=== PATIENT | male | born 1955 ===

== ENCOUNTER 2022-10-10 08:04 | Outpatient (AMB) | payer OTHER, SELFPAY ==
[2022-10-10 08:17] VITALS: BP 120/70; PULSE 74; O2SAT 98; BMI 28.9
--- NOTE | 2022-10-10 08:17 | MHC.OFFVIS ---
Intake Vital Signs 10/10/22 08:17 Height 5 ft 6 in Weight 179 lb BMI 28.9 BP 120/70 Position Sitting Pulse 74 Pulse Source Pulse Oximeter Pulse Oximetry (%) 98 Oxygen Delivery Method Room Air Intake Visit Reasons: Pulmonary nodule Intake Note: pt is here as he states for nodule on lungs, he feels fine. non -smoker, exposed to second hand smoke. Office Executive Required: No Allergies novacaine Adverse Reaction (Uncoded 10/10/22 08:21) does not work HPI HPI Comments History of Present Illness Details The patient is here for pulmonary evaluation. The patient is a 59-year-old gentleman nonsmoker will was in the [place] was found to have pulmonary nodules. The patient states many years ago he developed shortness of breath he had called EMS he was taken to [facility] where he had a chest x-ray he was told yet ?lung cancer?. He then followed up with his primary care doctor who told him use just nodules. After that he started getting care at the [place]. The patient apparently had a CT scan of the chest back in September 2021 and again in March 2022. I will was not able to look at those films but it was noted the patient had multiple pulmonary nodules bilaterally largest 1 in the right lower lobe measuring 10 mm in size. Apparently had not changed in size when compared to that interim. He did have a recent CT scan which I personally reviewed. He did bring the CD although, I do not have the formal read as of yet. I did personally reviewed and demonstrated that he had numerous pulmonary nodules but are relatively well-circumscribed. The right lower lobe 10 mm pulmonary nodule appears to be more concerning as it is spiculated and irregular in size in features. Therefore this nodule becomes more concerning because of his appearance. Explained to the patient that if there is any evidence of any change in this nodule that issue be intervened that. We did talk about a PET scan versus a surgical resection. But, we will wait for the final read of the latest CT chest and he will provide me with the ols CT chest scan(s). [facility] Medical History (Updated 10/10/22 @ 09:02 by Jorje Walsh MD) Pulmonary nodule Pulmonary nodules Social History (Updated 10/10/22 @ 08:21 by TRUNG Montiel) Patient Tobacco Use Status: Never used Tobacco Review of Systems Const Denies fatigue and Denies fever(s) Eyes Denies blurry vision ENT Denies nasal congestion Card Denies chest pain Resp Reports cough and Denies wheezing GI Reports no additional complaints Musc Reports no additional complaints Skin/Breast Denies rash Neuro Reports no additional complaints Endo Denies fatigue Jason/Lymph Denies lymphadenopathy Aller/Immun Denies wheezing Physical Exam Vital Signs: Last Vital Signs Pulse 74 10/10/22 08:17 BP 120/70 10/10/22 08:17 Pulse Ox 98 10/10/22 08:17 Oxygen Delivery Method Room Air 10/10/22 08:17 BMI result Body Mass Index 28.9 Const General: comfortable HEENT Head: Yes atraumatic Neck Neck: Yes supple Chest Chest palpation & inspection: normal inspection of the chest Resp Effort & Inspection: normal respiratory effort Auscultation: rales on the left at the base and diminished lung sounds Cardio Rate: regular rate Rhythm: regular rhythm Heart sounds: S1 normal heart sound present and S2 normal heart sound present GI Palpation (GI): Soft to palpation Skin General skin exam: no rashes or lesions noted Extrem General: Yes no clubbing, cyanosis or edema Results Reviewed Results Reviewed: 10 mm spiculated nodule in the RLL Assessment & Plan Assessment & Plan (1) Pulmonary nodule: Comment: spiculated 10 cm RLL nodule Code(s): R91.1 - Solitary pulmonary nodule (2) Pulmonary nodules: Code(s): R91.8 - Other nonspecific abnormal finding of lung field Plan Will need to review the CT chest 09/2022 report. The RLL appears to be spiculated and concerning in appearence. Need to know how it compares to previous. If enlanged or changed should consider resection or PET. Once available, I will call the patient REC: Awaiting CT chest report awaiting old CT chest CD PFTs F/U 2-3 months Coding Level of Care Code New Pt Level 4 (32990) Diagnoses Pulmonary nodule R91.1 Pulmonary nodules R91.8 Time Spent (min) 40
== END 2022-10-10 08:49 | disposition home or self-care (01) ==
PROVIDERS: PCP Internal Medicine; Visit Provider Hospitalist
DX: R91.1 Solitary pulmonary nodule (principal); R91.8 Other nonspecific abnormal finding of lung field
CPT/HCPCS: 99204

== ENCOUNTER → 2022-10-10 08:04 | Outpatient (BNVA) | payer OTHER, SELFPAY | PROVIDERS: Visit Provider Hospitalist | DX: R91.1 Solitary pulmonary nodule (principal) | CPT/HCPCS: 99202 ==

== ENCOUNTER 2022-10-13 07:02 | Outpatient (REF) | payer OTHER, SELFPAY ==
--- NOTE | 2022-10-13 08:06 | PFT_ITS ---
FLOWS: 1. FEV1 93% of predicted at 2.64 L. 2. FVC 81% of predicted at 3.10 L. 3. FEV1 to FVC ratio of 0.85. 4. No bronchodilator response except in small to medium airways. LUNG VOLUMES: 1. Total lung capacity 83% of predicted at 5.16 L. 2. Residual volume 79% of predicted at 1.75 L. 3. Slow vital capacity 85% of predicted at 3.41 L. 4. Expiratory reserve volume 18% of predicted at 0.19 L. 5. Diffusion capacity is mildly decreased, diffusion capacity corrects to normal after adjustment for alveolar ventilation. IMPRESSION: No obstructive or restrictive ventilatory defect. No bronchodilator response except in small to medium airways. Jose G De Leon MD AP/MODL / [id number]
== END 2022-10-13 07:03 | disposition home or self-care (01) ==
LOC: HO.RESP 07:02
PROVIDERS: Visit Provider Hospitalist
DX: R91.1 Solitary pulmonary nodule (principal)
CPT/HCPCS: 94010; 94727; 94729

== ENCOUNTER → 2022-10-13 08:06 | Outpatient (BNV) | payer OTHER, SELFPAY | PROVIDERS: Visit Provider Internal Medicine Pulmonary Disease | DX: R91.8 Other nonspecific abnormal finding of lung field (principal); R06.09 Other forms of dyspnea | CPT/HCPCS: 94060; 94727; 94729 ==

== ENCOUNTER 2022-12-21 07:49 | Outpatient (AMB) | payer OTHER, SELFPAY ==
--- NOTE | 2022-12-21 08:24 | MHC.OFFVIS ---
Intake Vital Signs 12/21/22 08:25 Height 5 ft 6 in Weight 180 lb 4 oz BMI 29.1 Pulse 63 Pulse Source Pulse Oximeter Pulse Oximetry (%) 98 Oxygen Delivery Method Room Air Intake Visit Reasons: Pulmonary nodule Inventory Taker Required: No Allergies novacaine Adverse Reaction (Uncoded 12/21/22 08:26) does not work HPI HPI Comments History of Present Illness Details The patient is a 59-year-old gentleman nonsmoker will was in the [place] was found to have pulmonary nodules. The patient states many years ago he developed shortness of breath he had called EMS he was taken to [facility] where he had a chest x-ray he was told yet ?lung cancer?. He then followed up with his primary care doctor who told him use just nodules. After that he started getting care at the [place]. The patient apparently had a CT scan of the chest back in September 2021 and again in March 2022. I will was not able to look at those films but it was noted the patient had multiple pulmonary nodules bilaterally largest 1 in the right lower lobe measuring 10 mm in size. Apparently had not changed in size when compared to that interim. He did have a recent CT scan which I personally reviewed. He did bring the CD although, I do not have the formal read as of yet. I did personally reviewed and demonstrated that he had numerous pulmonary nodules but are relatively well-circumscribed. The right lower lobe 10 mm pulmonary nodule appears to be more concerning as it is spiculated and irregular in size in features. Therefore this nodule becomes more concerning because of his appearance. Explained to the patient that if there is any evidence of any change in this nodule that issue be intervened that. We did talk about a PET scan versus a surgical resection. But, we will wait for the final read of the latest CT chest and he will provide me with the old CT chest scan(s). 12/21/2022 the patient is here for a pulmonary follow-up visit. The patient overall has been doing fairly well though nervous about his all pulmonary issue. Denies any significant cough or shortness of breath. He denies any night sweats or weight loss. He currently is not using any inhalers. We did review his recent PET scan that he had at [facility]. The patient does have multiple pulmonary nodules but 1 nodule in the right lower lobe were it measures about a cm and appears to be spiculated. That nodule on the PET scan did not light up was not PET avid. Explained to the patient that this is reassuring although it is not a definitive results. The patient understands the still a chance that this could be a smoldering slow-moving cancer were may not light up on the PET scan as much. The patient also has other pulmonary nodules that are too small for the accuracy of PET. Therefore will have to continue following does nodules. Under respiratory exam the patient does have a prolonged expiratory phase and some coarse breath sounds with some rhonchi. I did offer him a short-acting beta agonist with the patient at this point would like to hold off on any inhalers. He will monitor his symptoms. If his symptoms worsen he can always call and I can send him a prescription. Otherwise will follow-up in 6 months after he is repeat CT scan of the chest. [facility] Medical History (Updated 12/21/22 @ 21:03 by Jorje Walsh MD) Pulmonary nodules Pulmonary nodule Social History (Updated 10/10/22 @ 08:21 by TRUNG Montiel) Patient Tobacco Use Status: Never used Tobacco Review of Systems Const Denies fatigue and Denies fever(s) Eyes Denies blurry vision ENT Denies nasal congestion Card Denies chest pain Resp Reports cough and Denies wheezing GI Reports no additional complaints Musc Reports no additional complaints Skin/Breast Denies rash Neuro Reports no additional complaints Endo Denies fatigue Jason/Lymph Denies lymphadenopathy Aller/Immun Denies wheezing Physical Exam Vital Signs: Last Vital Signs Pulse 63 12/21/22 08:25 Pulse Ox 98 12/21/22 08:25 Oxygen Delivery Method Room Air 12/21/22 08:25 BMI result Body Mass Index 29.1 Const General: comfortable HEENT Head: Yes atraumatic Neck Neck: Yes supple Chest Chest palpation & inspection: normal inspection of the chest Resp Effort & Inspection: normal respiratory effort and prolonged expiratory phase Auscultation: no rales, rhonchi and diminished lung sounds Cardio Rate: regular rate Rhythm: regular rhythm Heart sounds: S1 normal heart sound present and S2 normal heart sound present GI Palpation (GI): Soft to palpation Skin General skin exam: no rashes or lesions noted Extrem General: Yes no clubbing, cyanosis or edema Assessment & Plan Assessment & Plan (1) Pulmonary nodule: Comment: spiculated 10 cm RLL nodule Code(s): R91.1 - Solitary pulmonary nodule (2) Pulmonary nodules: Code(s): R91.8 - Other nonspecific abnormal finding of lung field (3) Abnormal bone marrow examination: Code(s): R89.8 - Other abnormal findings in specimens from other organs, systems and tissues Plan consider PADMINI CT chest in 6 months Abnormal bonemarrow tracer on the PET. Unclear significance. Recommend he f/u with his PCP F/U 6 months Orders: Orders CT chest wo IV con 6 Months R91.8 - Other nonspecific abnormal finding of lung field Complete Blood Count Auto Diff Today R91.8 - Other nonspecific abnormal finding of lung field Erythrocyte Sedimentation Rate Today R91.8 - Other nonspecific abnormal finding of lung field Liver Panel Today R91.8 - Other nonspecific abnormal finding of lung field Coding Level of Care Code Est Pt Level 4 (52779) Diagnoses Pulmonary nodule R91.1 Pulmonary nodules R91.8 Abnormal bone marrow examination R89.8 Time Spent (min) 17
[2022-12-21 08:25] VITALS: PULSE 63; O2SAT 98; BMI 29.1
== END 2022-12-21 08:48 | disposition home or self-care (01) ==
PROVIDERS: PCP Internal Medicine; Visit Provider Hospitalist
DX: R91.1 Solitary pulmonary nodule (principal); R91.8 Other nonspecific abnormal finding of lung field; R89.8 Other abnormal findings in specimens from other organs, systems and tissues
CPT/HCPCS: 99214

== ENCOUNTER 2022-12-21 07:49 | Outpatient (REF) | payer OTHER, SELFPAY ==
[2022-12-21 09:28] LABS: MANUAL DIFF FLAG NO
[2022-12-21 10:08] LABS: Basophils Absolute Auto 0.1 X10*3/uL (0.0-0.2); Basophils Percent Auto 1.5 % (0-2); Eosinophils Absolute Auto 0.6 X10*3/uL (0.0-0.4); Eosinophils Percent Auto 10.1 % (0-4); Hematocrit 43.5 % (42.0-52.0); Hemoglobin 14.1 g/dl (14.0-18.0); Imm Gran Abs Auto 0.03 X10*3/uL (0.00-0.03); Imm Gran Pct Auto 0.6 % (0.0-0.4); Lymphocytes Percent Auto 36.2 % (20-40); Mean Corpuscular HGB Conc 32.4 g/dl (31.0-36.0); Mean Corpuscular Hemoglobin 29.6 pg (27.0-33.0); Mean Corpuscular Volume 91.4 fL (80.0-98.0); Mean Platelet Volume 11.5 fL (9.4-12.4); Monocytes Absolute Auto 0.4 X10*3/uL (0.1-1.2); Monocytes Percent Auto 7.6 % (2-11); Neutrophils Absolute Auto 2.4 x10*3/uL (2.0-8.3); Platelet Count 203 X10*3/uL (160-400); Red Blood Count 4.76 X10*6/uL (4.60-5.80); Red Cell Distribution Width 13.5 % (11.0-16.0); White Blood Count 5.4 X10*3/uL (4.8-10.8)
[2022-12-21 10:34] LABS: Alanine Aminotransferase 15 U/L (0-40); Alkaline Phosphatase 54 U/L (39-117); Aspartate Amino Transferase 14 U/L (5-37); Bilirubin Direct 0.2 mg/dL (0.0-0.5); Bilirubin Total 0.7 mg/dL (0.0-1.0); Total Protein 6.9 g/dL (6.5-8.0)
[2022-12-21 10:57] LABS: Erythrocyte Sedimentation Rate 5 MM/HR (0-15)
== END 2022-12-21 07:50 | disposition home or self-care (01) ==
LOC: HO.LAB 07:49
PROVIDERS: PCP Internal Medicine; Visit Provider Hospitalist
DX: R91.8 Other nonspecific abnormal finding of lung field (principal); R89.8 Other abnormal findings in specimens from other organs, systems and tissues
CPT/HCPCS: 36415; 80076; 85025; 85652; 99212

== ENCOUNTER 2023-04-18 08:21 | Outpatient (AMB) | payer OTHER, SELFPAY ==
--- NOTE | 2023-04-18 09:33 | A.OFFVIS_ITS ---
Intake Vital Signs 04/18/23 09:36 Height 5 ft 6 in Weight 186 lb BMI 30.0 BP 168/88 H Blood Pressure Location Rt radial Position Sitting Pulse 71 Intake Visit Reasons: solitary pulmonary nodule Intake Note: Patient referred by pcp Dr. Ramos for pulmonary nodule. Recent chest CT on 04-06-23. Las visit with Dr. Walsh (plastic extrusion operator) on 12-21-22. Patient c/o: denies difficulty breathing, shortness of breath. Slubber Frame Changer Required: No Accompanied by: Self / Same As Patient Allergies novacaine Adverse Reaction (Uncoded 04/18/23 09:34) does not work HPI HPI Comments History of Present Illness Details Patient presents with a several month history of a right lower lobe lung lesion. This has increased in size, and has become spiculated and suspicious for a neoplastic process. [facility] as well as a PET scan. These were reviewed. The meantime, patient has no respiratory issues or complaints. He denies any chronic cough, hemoptysis, chest pain, wheezing. He has normal energy, weight is stable, and appetite is good. Patient himself has never been a smoker but he has had a longstanding history of exposure to secondhand smoke through his father and inlaws. Chart was reviewed and patient evaluated. Approximate 25 years ago patient had bilateral orchiectomy for testicular cancer. [facility] Medical History Pulmonary nodules Pulmonary nodule Surgical History (Updated 04/18/23 @ 10:31 by Aron Martin MD) Pulmonary nodule Social History (Updated 04/18/23 @ 09:35 by TRUNG Silvestre) Alcohol intake: current Alcohol intake frequency: holidays/special occasions only Alcohol type: beer Patient Tobacco Use Status: Never used Tobacco Physical Exam Vital Signs: Last Vital Signs Pulse 71 04/18/23 09:36 BP 168/88 H 04/18/23 09:36 BMI result Body Mass Index 30.0 Neck Other: No cervical periclavicular axillary adenopathy bilaterally. Chest Other: Chest breath sounds bilaterally, HS 1 in 2 GI Other: Abdomen soft, modestly corpulent, benign Assessment & Plan Assessment & Plan (1) Pulmonary nodule: Comment: spiculated 10 cm RLL nodule Code(s): R91.1 - Solitary pulmonary nodule Plan Patient had pulmonary function tests approximately 6 months ago at [place].. These will be reviewed. CT scan disc was presented today by the patient and this was also reviewed. PET scan results from the [place] were also evaluated. Risks, benefits, and alternatives of VATS right lower lobe wedge resection, with frozen section, with possible right lower lobectomy, possible thoracotomy reviewed with the patient and included but not limited to bleeding, infection, recurrence of cancer, numbness, pain, scarring, numbness and the patient wishes to proceed. All questions answered. Once the PFTs have been reviewed, and if adequate, arrangements will be made for the above-mentioned procedure. All questions answered. Coding Level of Care Code New Pt Level 5 (33455) Diagnoses Pulmonary nodule R91.1
[2023-04-18 09:36] VITALS: BP 168/88; PULSE 71
== END 2023-04-18 09:55 | disposition home or self-care (01) ==
PROVIDERS: PCP Internal Medicine; Visit Provider Surgery
DX: R91.1 Solitary pulmonary nodule (principal)
CPT/HCPCS: 99204

== ENCOUNTER → 2023-04-18 08:21 | Outpatient (BNVA) | payer OTHER, SELFPAY | PROVIDERS: PCP Internal Medicine; Visit Provider Surgery | DX: R91.1 Solitary pulmonary nodule (principal) | CPT/HCPCS: 99202 ==

== ENCOUNTER → 2023-04-28 13:49 | Outpatient (BNV) | payer OTHER, SELFPAY | PROVIDERS: Admitting Provider Surgery; PCP Internal Medicine; Visit Provider Internal Medicine Cardiovascular Disease | DX: Z01.818 Encounter for other preprocedural examination (principal) | CPT/HCPCS: 93010 ==

== ENCOUNTER 2023-05-04 04:56 | Inpatient (IN) | payer OTHER, SELFPAY ==
--- NOTE | 2023-04-28 | ECG_ITS ---
Test Reason : PRE OP Blood Pressure : / mmHG Vent. Rate : 062 BPM Atrial Rate : 062 BPM P-R Int : 168 ms QRS Dur : 138 ms QT Int : 440 ms P-R-T Axes : 053 082 052 degrees QTc Int : 446 ms Normal sinus rhythm Right bundle branch block Abnormal ECG No previous ECGs available Referred By: Belen Campuzano Electronically Signed By:ABIGAIL ROWLAND MD
[2023-04-28 12:49] VITALS: BP 133/88; PULSE 72; RESP 20; O2SAT 97; BMI 29.9
[2023-04-28 14:04] LABS: Hematocrit 41.6 % (42.0-52.0); Hemoglobin 13.9 g/dl (14.0-18.0); Mean Corpuscular HGB Conc 33.4 g/dl (31.0-36.0); Mean Corpuscular Hemoglobin 29.5 pg (27.0-33.0); Mean Corpuscular Volume 88.3 fL (80.0-98.0); Platelet Count 229 X10*3/uL (160-400); Red Blood Count 4.71 X10*6/uL (4.60-5.80); Red Cell Distribution Width 13.2 % (11.0-16.0)
[2023-04-28 15:03] LABS: Anion Gap 13 (12-20); Blood Urea Nitrogen 22 mg/dL (9-16); Calcium 9.4 mg/dL (8.4-10.2); Carbon Dioxide 25 mmol/L (22-29); Chloride 104 mmol/L (96-108); Creatinine Clr Calc Pharmacy 85.3; Estimated Glomerular Filt Rate > 60; Glucose Random 96 mg/dL (60-115); Potassium 4.4 mmol/L (3.3-5.1); Sodium 138 mmol/L (135-145)
[2023-04-28 15:14] LABS: Estimated Average Glucose 114 mg/dL; Hemoglobin A1c % 5.6 % (<6.0)
--- NOTE | 2023-05-03 11:14 | MHC.SHP ---
Pre-Procedural Eval Section A - 24 Hr Update-Section A only Date of Service: 05/03/23 The patient is an INPATIENT: Yes Changes since office visit: No Cold of Flu in the past 2 weeks, No New Medical Problems, No Changes in Medication and No Patient answered all questions The patient has been examined within 24 hours of the surgical procedure. The History & Physical has been completed within 30 days and I have reviewed it.: Yes Section B - Complete if H&P > 30 days Chief Complaint: Solitary pulmonary nodule Allergies: Allergies Allergy/AdvReac Type Severity Reaction Status Date / Time beet Allergy Intermediate Vomiting Verified 04/28/23 12:42 procaine [From Novocain] AdvReac Intermediate has no Verified 04/27/23 09:53 effect Plan I have reviewed the history and physical and performed a pertinent physical examination on my patient. No changes have occurred unless specified. Time Spent With Patient Time: Total time managing care of this patient today ____ minutes.
[2023-05-04] VITALS (12 sets, daily range): BP systolic 100–167; BP diastolic 61–84; PULSE 63–83; RESP 10–20; TEMP 36.1–36.9; O2SAT 95–100; BMI 30.3
--- NOTE | ~2023-05-04 | XR_ITS ---
EXAMINATION: XR CHEST CLINICAL INFORMATION: Status post right lower lobe lobectomy COMPARISON: None available. TECHNIQUE: Frontal view of the chest was obtained. FINDINGS: Apically oriented right chest tube. No appreciable pneumothorax. Elevation the right hemidiaphragm. Surgical material left medial lung base. Bibasilar atelectasis. Interstitial prominence. Trachea is midline. Cardiac mediastinal silhouette is borderline enlarged. Aorta demonstrates mild tortuosity. No large pleural effusion. Osseous structures are intact. Right lateral chest wall subcutaneous emphysema. XR/XR chest 1V IMPRESSION: 1. Apically oriented right chest tube. No appreciable pneumothorax. 2. Elevation the right hemidiaphragm. 3. Surgical material left medial lung base. 4. Bibasilar atelectasis. 5. Interstitial prominence. 6. Right lateral chest wall subcutaneous emphysema.
--- NOTE | ~2023-05-04 | XR_ITS ---
EXAMINATION: XR CHEST CLINICAL INFORMATION: 68-year-old male with status post right lower lobectomy COMPARISON: 05/04/2023 TECHNIQUE: AP view of the chest was obtained. FINDINGS: There is low lung volume bilaterally with chest tube seen over the right apex. Right lung is partially expanded. No evidence of infiltrates or nodules. There are expected postsurgical changes with soft tissue emphysema seen on the right. . XR/XR chest 1V IMPRESSION: Expected postsurgical changes without evidence of pneumothorax but soft tissue emphysema on the right
--- NOTE | ~2023-05-04 | XR_ITS ---
EXAMINATION: XR CHEST CLINICAL INFORMATION: Right chest tube removed. COMPARISON: Chest 05/06/2023, 05/05/2023 and 05/04/2023. TECHNIQUE: Frontal view of the chest was obtained. FINDINGS: Right chest tube has been removed a tiny residual right apical pneumothorax is visualized. There is a hypoexpanded lungs with right basilar and CP angle haziness likely thickening all residual effusion. The left lung is clear. The heart size and pulmonary vascularity is normal. There is a right anterolateral chest wall subcutaneous emphysema, stable. XR/XR chest 1V IMPRESSION: 1. Right chest tube has been removed. There is a tiny residual right apical pneumothorax. 2. Hypoexpanded lungs with right basilar and CP angle haziness likely thickening or effusion. 3. There is right anterolateral chest wall subcutaneous emphysema.
--- NOTE | ~2023-05-04 | XR_ITS ---
EXAMINATION: XR CHEST CLINICAL INFORMATION: Status post right lower lobectomy. COMPARISON: 05/05/2023 TECHNIQUE: Frontal view of the chest was obtained. FINDINGS: The tip of the right thoracostomy tube projects over the right apex. There is equivocal finding of a trace apical pneumothorax. Also, question presence of small amount of pleural gas at the right lateral base after the recent lower lobectomy. Again noted is soft tissue emphysema along the right lateral chest wall. Lungs are hypoinflated. Hazy and/or linear streaky opacities of atelectasis at the bases remain similar in appearance compared to 05/05/2023. Some of the haziness at the right base appears to be from a small pleural effusion. Multiple EKG wires overlie the chest. Cardiac silhouette is normal in size. Pulmonary artery pattern is grossly normal. No acute osseous abnormality. XR/XR chest 1V IMPRESSION: * Hypoinflated lungs. The bibasilar atelectasis is similar in appearance compared to 05/05/2023. * Small right pleural effusion. * Probable trace right pneumothorax with thoracostomy tube in place, status post lower lobectomy.
[2023-05-04] MEDS: Lactated Ringers 1,000 ML 100 ML IVCONT (06:55)
--- NOTE | 2023-05-04 07:20 | HO.ANESPROP2 ---
Documented by User: Belen Campuzano NP 05/01/23 13:25 HPI - Anesthesia Eval Consult details Narrative: 68yo M for Right Thoracoscopy w/Video Assist Lower Lobe,poss lobectomy, Thoracotomy and Bronchoscopy, 05/04/22 No recent illness No CP/SOB with exercise Wrist fx 03/2023 with splint PMFSH Active Problems Active Problems: All Active Problems (Updated 04/28/23 @ 12:42 by Rosario Tuttle RN) Abnormal bone marrow examination (Acute) Pulmonary nodules (Acute) Pulmonary nodule (Acute) Past Medical History Medical History Right wrist fracture Pulmonary nodule Testicular cancer Elevated cholesterol Pre-diabetes RBBB (right bundle branch block) Dyslexia and alexia DJD (degenerative joint disease) Family History Family history of problems with anesthesia: No Surgical History Surgical History Hx of left inguinal hernia repair H/O colonoscopy Hx of bilateral orchiectomies Hx of nasal septoplasty History of Problems with Anesthesia: No Social History Social History (Updated 04/18/23 @ 09:35 by TRUNG Silvestre) Are you a primary regular senior care provider to a significant other at home: No Do you presently have visiting nurse or other home services: No Alcohol intake: current Alcohol intake frequency: holidays/special occasions only Alcohol type: beer Patient Tobacco Use Status: Never used Tobacco Use of substances other than those prescribed or required for medical reasons: No Have you been hit, kicked, punched, or otherwise hurt by someone within the past year? If so, by whom?: No Are you DNR?: No Advance Directives: No Advance Directives Information Provided: Yes (brochure given) Advance Directives on File: No Recently lost weight without trying: No Eating poorly because of decreased appetite: No Nutrition Risks: No Nutritional Risk Poor oral hygiene: No (upper full denture-does not use Fixodent/broken teeth-lower (no denture)) Meds Allergies Allergy/AdvReac Type Severity Reaction Status Date / Time beet Allergy Intermediate Vomiting Verified 05/04/23 06:10 procaine [From Novocain] AdvReac Intermediate has no Verified 05/04/23 06:10 effect Home Medications Medication Instructions Recorded Confirmed Last Taken Type fluticasone propionate 50 1 spray intranasal DAILY PRN sinus 04/28/23 05/04/23 Unknown History mcg/actuation nasal congestion spray,suspension Exam Pertinent Lab Results Pertinent Lab Results: Lab Results 04/28/23 04/28/23 Range/Units 13:46 13:52 WBC 7.0 (4.8-10.8) X10*3/uL RBC 4.71 (4.60-5.80) X10*6/uL Hgb 13.9 L (14.0-18.0) g/dl Hct 41.6 L (42.0-52.0) % MCV 88.3 (80.0-98.0) fL MCH 29.5 (27.0-33.0) pg MCHC 33.4 (31.0-36.0) g/dl RDW 13.2 (11.0-16.0) % Plt Count 229 (160-400) X10*3/uL MPV 11.0 (9.4-12.4) fL Absolute Nucleated RBC 0.000 (0.0-0.012) X10*3/uL Nucleated RBC % (auto) 0.0 (0.0-0.2) /100WBC Sodium 138 (135-145) mmol/L Potassium 4.4 (3.3-5.1) mmol/L Chloride 104 (96-108) mmol/L Carbon Dioxide 25 (22-29) mmol/L Anion Gap 13 (12-20) BUN 22 H (9-16) mg/dL Creatinine 0.83 (0.5-1.4) mg/dL Estim Creat Clear Calc 85.3 Estimated GFR > 60 Random Glucose 96 (60-115) mg/dL Estimat Average Glucose 114 mg/dL Hemoglobin A1c % 5.6 (<6.0) % Calcium 9.4 (8.4-10.2) mg/dL Blood Type A Positive Antibody Screen NEGATIVE Narrative Narrative: EKG 04/2023 Vent. Rate : 062 BPM Atrial Rate : 062 BPM P-R Int : 168 ms QRS Dur : 138 ms QT Int : 440 ms P-R-T Axes : 053 082 052 degrees QTc Int : 446 ms Normal sinus rhythm Right bundle branch block Abnormal ECG No previous ECGs available (Known hx RBBB) PFT 2022 FLOWS: 1. FEV1 93% of predicted at 2.64 L. 2. FVC 81% of predicted at 3.10 L. 3. FEV1 to FVC ratio of 0.85. 4. No bronchodilator response except in small to medium airways. LUNG VOLUMES: 1. Total lung capacity 83% of predicted at 5.16 L. 2. Residual volume 79% of predicted at 1.75 L. 3. Slow vital capacity 85% of predicted at 3.41 L. 4. Expiratory reserve volume 18% of predicted at 0.19 L. 5. Diffusion capacity is mildly decreased, diffusion capacity corrects to normal after adjustment for alveolar ventilation. IMPRESSION: No obstructive or restrictive ventilatory defect. No bronchodilator response except in small to medium airways. Airway Mallampati Class: I TM Dist: >3cm Neck ROM: Full Denture: Upper Loose/Missing/Broken Teeth: Yes (broken throughout lower) Heart: RRR Lungs: CTAB, prolonged expiratory Assessment and Plan Assessment Anesthesia Assessment: Anesthesia Plan Discussed and PAT Visit Final Anesthetic Review Family History of Problems with Anesthesia: No History of Problems with Anesthesia: No Documented by User: Jacque Garcia DO 05/04/23 07:24 HPI - Anesthesia Eval Consult details Narrative: 68yo M for Right Thoracoscopy w/Video Assist Lower Lobe,poss lobectomy, Thoracotomy and Bronchoscopy, 05/04/23 No recent illness No CP/SOB with exercise Wrist fx 03/2023 with splint PMFSH Past Medical History Medical History Right wrist fracture Pulmonary nodule Testicular cancer Elevated cholesterol Pre-diabetes RBBB (right bundle branch block) Dyslexia and alexia DJD (degenerative joint disease) Family History Family history of problems with anesthesia: No Surgical History Surgical History Hx of left inguinal hernia repair H/O colonoscopy Hx of bilateral orchiectomies Hx of nasal septoplasty History of Problems with Anesthesia: No Social History Social History (Updated 04/18/23 @ 09:35 by TRUNG Silvestre) Are you a primary regular senior care provider to a significant other at home: No Do you presently have visiting nurse or other home services: No Alcohol intake: current Alcohol intake frequency: holidays/special occasions only Alcohol type: beer Patient Tobacco Use Status: Never used Tobacco Use of substances other than those prescribed or required for medical reasons: No Have you been hit, kicked, punched, or otherwise hurt by someone within the past year? If so, by whom?: No Are you DNR?: No Advance Directives: No Advance Directives Information Provided: Yes (brochure given) Advance Directives on File: No Recently lost weight without trying: No Eating poorly because of decreased appetite: No Nutrition Risks: No Nutritional Risk Poor oral hygiene: No (upper full denture-does not use Fixodent/broken teeth-lower (no denture)) Meds Allergies Allergy/AdvReac Type Severity Reaction Status Date / Time beet Allergy Intermediate Vomiting Verified 05/04/23 06:10 procaine [From Novocain] AdvReac Intermediate has no Verified 05/04/23 06:10 effect Home Medications Medication Instructions Recorded Confirmed Last Taken Type fluticasone propionate 50 1 spray intranasal DAILY PRN sinus 04/28/23 05/04/23 Unknown History mcg/actuation nasal congestion spray,suspension Exam Exam Date and Time: May 04, 2023 0718 Height,Weight and Vital Signs: Height 5 ft 6 in Weight 85.275 kg Vital Signs Pulse Rate 72 04/28/23 12:49 Respiratory Rate 20 04/28/23 12:49 Blood Pressure 133/88 04/28/23 12:49 Pulse Oximetry 97 04/28/23 12:49 Oxygen Delivery Method Room Air 04/28/23 12:49 Temperature 97.2 F 05/04/23 06:33 Pulse Rate 66 05/04/23 06:33 Respiratory Rate 16 05/04/23 06:33 Blood Pressure 167/84 H 05/04/23 06:33 Pulse Oximetry 98 05/04/23 06:33 Oxygen Delivery Method Room Air 05/04/23 06:33 Airway Mallampati Class: I TM Dist: >3cm Neck ROM: Full Denture: Upper Loose/Missing/Broken Teeth: Yes (multiple broken teeth) Heart: S1S2 Lungs: CTAB Assessment and Plan Assessment Anesthesia Assessment: Anesthesia Plan Discussed and Chart Reviewed Final Anesthetic Review Family History of Problems with Anesthesia: No History of Problems with Anesthesia: No NPO: Yes ASA Class: II Final Preanesthetic Review: No Changes in Pt Med Stat, Meds/Allgs Chart Reviewed, Consent Obtained/Reviewed and Anes Risks/Benef Reviewed Patient Risk: Low Procedure Risk: High Anesthetic Plan Anesthetic Plan: GA and Agree w/ Assess. and Plan Disposition: Standard PACU
--- NOTE | 2023-05-04 11:39 | W.PM.OPN ---
Operative Note Operative Note Date of Service: 05/04/23 Narrative: Preoperative diagnosis: [] Right lower lobe lung mass Postop diagnosis: [] Right lower lobe lung adenocarcinoma Procedure [] bronchoscopy, vats right lower lobe wedge resection followed by VATS right lower lobectomy, mediastinal lymph node sampling, intercostal nerve block Surgeon: [] [employer] Dispatcher: [] Rafi Gannon Type of Anesthesia: [] Double-lumen general Indication for surgery: Right lower lobe wedge resection of peripherally situated lesion on frozen section was consistent with adenocarcinoma. No other gross intrathoracic pathology demonstrated. Bronchoscopy was used to assist anesthesia in the placement-lumen tube as well as for airway evaluation. No gross endoluminal pathology demonstrated. No other gross intrathoracic pathology demonstrated. Mediastinal lymph node stations 10 R, 7, and 11 sampled with permanent specimen. Findings: [] Patient brought to the operating room, placed on operative table in supine position, after an adequate level of double-lumen general anesthesia was induced, patient underwent bronchoscopy with findings as noted above. Patient was then placed in left lateral decubitus position with the right chest was prepped and draped in usual sterile fashion. Using anterior and posterior ports at approximately 7th intercostal space at anterior posterior axillary lines, and a 4 cm axillary access incision with wound protector placed, intrathoracic findings were as noted above. Right lower lobe lung lesion was identified and sequentially wedged out using GEN staplers. This was sent to pathology with findings as noted above. Patient then underwent right lower lobectomy. Inferior pulmonary ligament was taken down using Bovie and inferior pulmonary vein was circumferentially dissected out, skeletonized, and trisected using endoscopic vascular stapler. [place]um was approached where the pulmonary artery to the lower lobe was identified, skeletonized, and taken down with vascular stapler to the lower lobe and superior segmental branches. Fissures were completed using GEN staplers. Next the bronchus was circumferentially dissected out, skeletonized, and a heavy wire stapler placed across this. Remaining upper lobe and lower lobe reinflated with no compromise to these. Staplers uneventfully fired. Specimen was placed in an Endo-Catch bag, a retrieved through the access incision. Lymph node stations noted above were sampled as well. Chest cavity was filled with saline and remaining lung re-expanded with no leak from the bronchial stump. Through the anterior access port, 24 [place] chest tube was advanced and secured to the skin using 0 silk suture. All ports removed under direct laparoscopic view. Wounds were closed in the following manner; ports were closed using deep followed by dermal interrupted 2-0 and 3-0 Vicryl sutures respectively. Access incision has muscle reapproximated using running 0 Vicryl suture. Running subcu cutaneous 2-0 Vicryl suture followed by running subcuticular 4-0 Vicryl sutures were placed. Chest tube was connected to Pleur-evac and lung re-expanded with no significant air leak appreciated. Steri-Strips and sterile dressings were applied. Intercostal nerve block using long-acting Marcaine/Exparel was performed at completion of the procedure at all incision sites. Sponge, needle, and instrument counts were reported correct. Patient tolerated the procedure well and emerged from anesthesia stable condition. EBL minimal. Postprocedure x-ray pending.
--- NOTE | 2023-05-04 11:50 | PHA.MEDREC ---
Pharmacy Consult ? Medication Reconciliation Pharmacy has completed the medication reconciliation. Reviewed med rec done by nursing
[2023-05-04] MEDS: oxyCODONE HCl Immed Release 5 MG TABLET PO (13:06)
[2023-05-04] MEDS: Acetaminophen 1,000 MG/100 ML PIGGYBACK 400 MG IV ×2 (13:13→18:22)
[2023-05-04] MEDS: Lactated Ringers 1,000 ML 80 ML IVCONT (13:34)
--- NOTE | 2023-05-04 15:39 | PM.IMCN ---
History of Present Illness Data of Consult Service Date: 05/04/23 Primary Care Provider: Anya Ramos MD [facility] Reason for consult: MEdical management A 68 years old male with PMH of RLL lesion that was biopsied for enlarging in size presenting for elective surgery. a CT and PET scan were done at the [facility]. she presented today for elective VATS surgery. Denies any history of smoking but had been exposed to it. He has a hx of testicular cancer and has bilateral orchiectomy done almost 20 years ago. Today he was seen after surgery, feels ok, pain under fair control. no reported SOB or chest pain. Hospitalist team asked to follow for medical reasons. Review of Systems Review of Systems: No fever, chills or weakness No chest pain, palpitation No shortness of breath or coughing No abdominal pain, nausea or vomiting No urinary symptoms No any rash or wounds PMFSH Medical History Right wrist fracture Pulmonary nodule Testicular cancer Elevated cholesterol Pre-diabetes RBBB (right bundle branch block) Dyslexia and alexia DJD (degenerative joint disease) Surgical History Hx of left inguinal hernia repair H/O colonoscopy Hx of bilateral orchiectomies Hx of nasal septoplasty Social History Household Members: Family Housing: Apartment Are you a primary neonatal intensive care unit nurse to a significant other at home: No Do you presently have visiting nurse or other home services: No Alcohol intake: current Alcohol intake frequency: holidays/special occasions only Alcohol type: beer Comment: COUNTS CORRECT Patient Tobacco Use Status: Never used Tobacco service: Yes Meds Allergies Allergy/AdvReac Type Severity Reaction Status Date / Time beet Allergy Intermediate Vomiting Verified 05/04/23 06:10 procaine [From Novocain] AdvReac Intermediate has no Verified 05/04/23 06:10 effect Active Medications: Current Medications Fluticasone Propionate (Fluticasone Propionate Nasal 16 Gm [place]) 1 spray NOSTRIL-B DAILY PRN PRN Reason: sinus congestion Hydromorphone HCl (Hydromorphone Hcl 0.5 Mg/0.5 Ml Syringe) 0.5 mg IVPUSH Q3H PRN; Protocol PRN Reason: Pain, Severe (Pain Scale 7-10) Lactated Ringer's (Lr) 1,000 mls @ 80 mls/hr IVCONT .[id number] [facility] Last Admin: 05/04/23 13:34 Dose: 80 mls/hr Acetaminophen (Ofirmev) 1,000 mg in 100 mls @ 400 mls/hr IV Q6H [facility] Last Infusion: 05/04/23 13:34 Dose: Infused Oxycodone HCl (Oxycodone Hcl Immed Release 5 Mg Tablet) 5 mg PO Q4H PRN PRN Reason: Pain, Moderate(Pain Scale 4-6) Last Admin: 05/04/23 13:06 Dose: 5 mg Oxycodone HCl (Oxycodone Hcl Immed Release 5 Mg Tablet) 10 mg PO Q4H PRN PRN Reason: Pain, Severe (Pain Scale 7-10) Sodium Chloride (0.9 % Sodium Chloride Flush 3 Ml Syringe) 3 ml IVFLUSH QSHIFT [facility] Last Admin: 05/04/23 14:48 Dose: Not Given Home Medications Medication Instructions Recorded Confirmed Last Taken Type fluticasone propionate 50 1 spray intranasal DAILY PRN sinus 04/28/23 05/04/23 Unknown History mcg/actuation nasal congestion spray,suspension Physical Exam Vital Signs and Narrative: Vital Signs: Last Vital Signs Temp 97.3 F 05/04/23 12:54 Pulse 66 05/04/23 12:54 Resp 20 05/04/23 12:54 BP 108/61 05/04/23 12:54 Pulse Ox 98 05/04/23 12:54 O2 Del Method Nasal Cannula 05/04/23 12:54 O2 Flow Rate 2 05/04/23 12:54 BMI result Body Mass Index 30.3 Const: Other: Constitutional : Awake, interactive, not in distress Neck : Normal inspection, Supple Cardiovascular : RRR, no JVP, no lower extremity edema Respiratory : good bilateral air entry, no crackles, wheezes or rhonchi, surgery site covered with dressing Gastrointestinal: soft, lax, Normal bowel sounds, Non tender Skin : Warm, Dry Neurological : Alert & oriented x3, No focal deficit Results Labs 05/07/23 05:34 05/05/23 09:43 Imaging Radiologist's Impressions: Impressions Chest X-Ray 05/04/23 11:53 IMPRESSION: 1. Apically oriented right chest tube. No appreciable pneumothorax. 2. Elevation the right hemidiaphragm. 3. Surgical material left medial lung base. 4. Bibasilar atelectasis. 5. Interstitial prominence. 6. Right lateral chest wall subcutaneous emphysema. Assessment and Plan (1) S/P lobectomy of lung: Status: Acute (2) Pulmonary nodule: Status: Acute Plan A 68 years old male with PMH of RLL lesion that was biopsied for enlarging in size presenting for elective surgery. Lung cancer post VATS POD 0 pain management surgery team following to get oncology evaluation wean down O2 as tolerated Thank you for the consult. will follow with you as needed
[2023-05-05] VITALS (7 sets, daily range): BP systolic 98–127; BP diastolic 29–76; PULSE 63–107; RESP 16–20; TEMP 36.3–37.4; O2SAT 90–98
[2023-05-05] MEDS: Acetaminophen 1,000 MG/100 ML PIGGYBACK 400 MG IV ×2 (02:30→20:55)
[2023-05-05] MEDS: Lactated Ringers 1,000 ML 80 ML IVCONT (02:32)
[2023-05-05] MEDS: oxyCODONE HCl Immed Release 5 MG TABLET PO ×2 (06:16→15:27)
--- NOTE | 2023-05-05 08:14 | PM.PNTS ---
Subjective Subjective Date of Service: 05/05/23 <Kathie Mckee PA-C - Last Filed: 05/05/23 13:57> 05/05/23 <Aron Martin MD - Last Filed: 05/05/23 09:39> Interval history: Denies shortness of breath. Tolerating diet. Ambulated in joshi overnight. Using incentive spirometer. Coughing up some blood tinged sputum. <Kathie Mckee PA-C - Last Filed: 05/05/23 13:57> Physical Exam Vital Signs: Vital Signs: Last Vital Signs Temp 98.0 F 05/05/23 07:46 Pulse 63 05/05/23 07:46 Resp 20 05/05/23 07:46 BP 98/55 L 05/05/23 07:46 Pulse Ox 98 05/05/23 07:46 O2 Del Method Nasal Cannula 05/05/23 07:46 O2 Flow Rate 2 05/05/23 07:46 BMI result Body Mass Index 30.3 <Kathie Mckee PA-C - Last Filed: 05/05/23 13:57> Const: General: comfortable, no acute distress and alert <Kathie Mckee PA-C - Last Filed: 05/05/23 13:57> Orientation/consciousness: patient oriented x3 <ANTONI Da Silva Last Filed: 05/05/23 13:57> Chest: Other: incisions clean chest tube in place, scant output, no air leak <Kathie Mckee PA-C - Last Filed: 05/05/23 13:57> Resp: Effort & Inspection: normal respiratory effort <Kathie Mckee PA-C - Last Filed: 05/05/23 13:57> Skin: General skin exam: no rashes or lesions noted <ANTONI Da Silva Last Filed: 05/05/23 13:57> Neuro: General: patient oriented x3 and moves all extremities <ANTONI Da Silva Last Filed: 05/05/23 13:57> Procedures Date of Service Date of Service: 05/05/23 <ANTONI Da Silva Last Filed: 05/05/23 13:57> 05/05/23 <Aron Martin MD - Last Filed: 05/05/23 09:39> Progress Note: A&P Assessment and plan (1) Pulmonary nodules: Status: Acute <Kathie Mckee PA-C - Last Filed: 05/05/23 13:57> (2) S/P lobectomy of lung: Status: Acute <Kathie Mckee PA-C - Last Filed: 05/05/23 13:57> Assessment and Plan: POD #1 s/p bronchoscopy, vats right lower lobe wedge resection followed by VATS right lower lobectomy, mediastinal lymph node sampling, intercostal nerve block. He is doing very well post op. Chest tube with scant output, no air leak. AM CXR no acute process. Chest tube to water seal. Encouraged OOB, ambulation and IS use. Dc IVF. Pain control as needed. Repeat CXR in am, if no pneumo can remove chest tube tomorrow. Await pathology. <Kathie Mckee PA-C - Last Filed: 05/05/23 13:57> Time Spent With Patient Time: Total time managing care of this patient today ____ minutes. <Kathie Mckee PA-C - Last Filed: 05/05/23 13:57> Quality Stroke Does the patient have a stroke diagnosis?: No <Aron Martin MD - Last Filed: 05/05/23 09:39> VTE Prior VTE?: No <Aron Martin MD - Last Filed: 05/05/23 09:39> VTE Risk Level:: Surgical - low <Kathie Mckee PA-C - Last Filed: 05/05/23 13:57> VTE Device Contraindication: N/A - Device Ordered <Kathie Mckee PA-C - Last Filed: 05/05/23 13:57> VTE Drug Contraindication: N/A - Med Ordered <Kathie Mckee PA-C - Last Filed: 05/05/23 13:57>
[2023-05-05] MEDS: 0.9 % Sodium Chloride Flush 3 ML SYRINGE IVFLUSH ×3 (08:56→20:55)
--- NOTE | 2023-05-05 09:28 | MHC.CM.PN ---
IMM 05/05/23 DELIVERED TO BEDSIDE, PT REPORTS HE HAS MEDICARE HOWEVER HAS [facility] USED [facility], [facility] PT IS NOT SERVICE CONNECTED HOWEVER DOES HAVE OUTPT BENEFITS FO HOME HEALTH/VNA, PT DOES NOT HAVE SNF/LTC BENEFIT. PT REPORTS HE LIVES ALONE, IS FULLY INDEP W/CARE, HAS A CANE AT HOME HOWEVER DOES NOT NEED/USE IT AND NO HOME SERVICES, PT REPORTS IS GOAL FOR DC IS HOME AND DENIES NEED FOR SERVICES UPON DC. PT VERIFIES PCP ON FILE IS CORRECT, DENIES RECEIVING OR WANTING ANY COVID VACCINE AND PT REPORTS HE DOES HAVE A HCP AT HOME NAMING HIS CLOSE FRIEND SAHARA BROWN (NUMBER ON FILE) HIS HCA HOWEVER PT REPORTS HE DID NOT NEED THE 2 WITNESSES TO SIGN HE COULD SIGN FOR HIMSELF, CM ATTEMPTED TO CLARIFY THE NEED FOR WITNESSES AND OFFERED TO COMPLETE A NEW ONE WITH PT HOWEVER PT IS ADAMANT THAT THE ONE HE HAS AT HOME IS GOOD AND DECLINES TO COMPLETE A NEW ONE, CM DID CONTACT [facility] AND THEY DO NOT HAVE ONE ON FILE. DCP: HOME NO SERVICES W/FRIEND FOR TRANSPORT
[2023-05-05 10:12] LABS: MANUAL DIFF FLAG NO
[2023-05-05 10:16] LABS: Basophils Percent Auto 0.2 % (0-2); Hematocrit 36.3 % (42.0-52.0); Hemoglobin 11.8 g/dl (14.0-18.0); Imm Gran Abs Auto 0.06 X10*3/uL (0.00-0.03); Imm Gran Pct Auto 0.5 % (0.0-0.4); Lymphocytes Absolute Auto 1.4 X10*3/uL (1.2-4.9); Lymphocytes Percent Auto 10.7 % (20-40); Mean Corpuscular HGB Conc 32.5 g/dl (31.0-36.0); Mean Corpuscular Hemoglobin 29.3 pg (27.0-33.0); Mean Corpuscular Volume 90.1 fL (80.0-98.0); Mean Platelet Volume 11.3 fL (9.4-12.4); Monocytes Absolute Auto 0.8 X10*3/uL (0.1-1.2); Monocytes Percent Auto 6.4 % (2-11); Neutrophils Absolute Auto 10.6 x10*3/uL (2.0-8.3); Neutrophils Percent Auto 82.2 % (45-73); Platelet Count 191 X10*3/uL (160-400); Red Blood Count 4.03 X10*6/uL (4.60-5.80); Red Cell Distribution Width 13.4 % (11.0-16.0); White Blood Count 12.8 X10*3/uL (4.8-10.8)
[2023-05-05 10:28] LABS: Anion Gap 12 (12-20); Blood Urea Nitrogen 15 mg/dL (9-16); Calcium 8.8 mg/dL (8.4-10.2); Carbon Dioxide 26 mmol/L (22-29); Chloride 103 mmol/L (96-108); Creatinine Clr Calc Pharmacy 88.1; Estimated Glomerular Filt Rate > 60; Glucose Fasting 119 mg/dL (60-99); Potassium 4.4 mmol/L (3.3-5.1); Sodium 137 mmol/L (135-145)
--- NOTE | 2023-05-05 14:34 | HO.POSTANES ---
Post Anesthesia Evaluation Post Anesthesia Evaluation Date of Service: 05/05/23 Vital Signs: Vital Signs Temp Pulse Resp BP Pulse Ox O2 Del Method O2 Flow Rate 05/05/23 11:23 98.4 F 92 20 102/59 L 95 Room Air 05/05/23 07:46 98.0 F 63 20 98/55 L 98 Nasal Cannula 2 05/05/23 04:00 98.1 F 70 18 104/57 L 96 Nasal Cannula 2 Anesthesia: General Endotracheal-GETA (double lumen tube) Mental Status: Awake Pain Control: Satisfactory Nausea/Vomiting: None Hydration: Adequate Anesthesia-Related Issues: No Anes. Related Issues
[2023-05-05] MEDS: oxyCODONE HCl Immed Release 5 MG TABLET 10 MG PO (20:54)
[2023-05-06 03:30] VITALS: BP 104/63; PULSE 67; RESP 20; TEMP 36.7; O2SAT 92
[2023-05-06 07:29] VITALS: BP 119/65; PULSE 82; RESP 20; TEMP 36.6; O2SAT 94
[2023-05-06] MEDS: Acetaminophen 1,000 MG/100 ML PIGGYBACK 400 MG IV ×2 (09:30→21:41)
[2023-05-06] MEDS: 0.9 % Sodium Chloride Flush 3 ML SYRINGE IVFLUSH ×3 (09:37→21:44)
[2023-05-06 11:11] VITALS: BP 112/67; PULSE 70; RESP 20; TEMP 36.8; O2SAT 93
--- NOTE | 2023-05-06 15:05 | PM.PNGS ---
Subjective Subjective Date of Service: 05/06/23 Interval history: pt feeling well no issues less pain Physical Exam Vital Signs: Vital Signs: Last Vital Signs Temp 98.2 F 05/06/23 11:11 Pulse 70 05/06/23 11:11 Resp 20 05/06/23 11:11 BP 112/67 05/06/23 11:11 Pulse Ox 93 05/06/23 11:11 O2 Del Method Room Air 05/06/23 11:11 O2 Flow Rate 2 05/05/23 07:46 BMI result Body Mass Index 30.3 Chest: Other: lungs good air entry bilaterally the right side no air leak or fluctuation and serous drainage minimum saturating well on room air Objective Data Active Medications Fluticasone Propionate (Fluticasone Propionate Nasal 16 Gm [place]) 1 spray NOSTRIL-B DAILY PRN PRN Reason: sinus congestion Hydromorphone HCl (Hydromorphone Hcl 0.5 Mg/0.5 Ml Syringe) 0.5 mg IVPUSH Q3H PRN; Protocol PRN Reason: Pain, Severe (Pain Scale 7-10) Acetaminophen (Ofirmev) 1,000 mg in 100 mls @ 400 mls/hr IV Q6H [facility] Last Infusion: 05/06/23 10:01 Dose: Infused Documented By: TANISHA Oxycodone HCl (Oxycodone Hcl Immed Release 5 Mg Tablet) 5 mg PO Q4H PRN PRN Reason: Pain, Moderate(Pain Scale 4-6) Last Admin: 05/05/23 15:27 Dose: 5 mg Documented By: DOBRORakan Oxycodone HCl (Oxycodone Hcl Immed Release 5 Mg Tablet) 10 mg PO Q4H PRN PRN Reason: Pain, Severe (Pain Scale 7-10) Last Admin: 05/05/23 20:54 Dose: 10 mg Documented By: TARUN Sodium Chloride (0.9 % Sodium Chloride Flush 3 Ml Syringe) [facility] Last Admin: 05/06/23 09:37 Dose: 3 ml Documented By: TANISHA Labs 05/05/23 09:43 05/05/23 09:43 Imaging Chest x-ray: Radiologist's impression: Impressions Chest X-Ray 05/06/23 07:25 IMPRESSION: * Hypoinflated lungs. The bibasilar atelectasis is similar in appearance compared to 05/05/2023. * Small right pleural effusion. * Probable trace right pneumothorax with thoracostomy tube in place, status post lower lobectomy. Procedures Date of Service Date of Service: 05/06/23 Progress Note: A&P Assessment and plan (1) S/P lobectomy of lung: Status: Acute Plan pod#2 s/p vat and lobectomy - doing well - will leave CT in for another 24 hrs then pull and if looks good dc home tomorrow. he agrees with plan Time Spent With Patient Time: Total time managing care of this patient today ____ minutes. Quality Stroke Does the patient have a stroke diagnosis?: No VTE Prior VTE?: No VTE Risk Level:: Surgical - low VTE Device Contraindication: N/A - Device Ordered VTE Drug Contraindication: N/A - Med Ordered
[2023-05-06 16:00] VITALS: BP 127/72; PULSE 79; RESP 18; TEMP 36.6; O2SAT 95
[2023-05-06 19:44] VITALS: BP 118/65; PULSE 80; RESP 16; TEMP 37; O2SAT 94
[2023-05-07] VITALS: BP 126/58; PULSE 56; RESP 16; TEMP 36.8; O2SAT 92
[2023-05-07 04:00] VITALS: BP 128/71; PULSE 82; RESP 16; TEMP 36.4; O2SAT 94
[2023-05-07 06:26] LABS: Hematocrit 36.5 % (42.0-52.0); Hemoglobin 12.1 g/dl (14.0-18.0); Mean Corpuscular HGB Conc 33.2 g/dl (31.0-36.0); Mean Corpuscular Hemoglobin 29.8 pg (27.0-33.0); Mean Corpuscular Volume 89.9 fL (80.0-98.0); Mean Platelet Volume 11.3 fL (9.4-12.4); Platelet Count 192 X10*3/uL (160-400); Red Blood Count 4.06 X10*6/uL (4.60-5.80); Red Cell Distribution Width 13.3 % (11.0-16.0); White Blood Count 9.3 X10*3/uL (4.8-10.8)
[2023-05-07 08:00] VITALS: BP 130/67; PULSE 76; RESP 20; TEMP 36.7; O2SAT 95
[2023-05-07] MEDS: 0.9 % Sodium Chloride Flush 3 ML SYRINGE IVFLUSH (09:32)
[2023-05-07] MEDS: oxyCODONE HCl Immed Release 5 MG TABLET PO (10:25)
[2023-05-07 11:27] VITALS: BP 116/66; PULSE 80; RESP 20; TEMP 37.2; O2SAT 94
--- NOTE | 2023-05-07 15:25 | PM.DS ---
DS: Providers Provider Date of Service: 05/07/23 Date of admission: 05/04/23 04:56 Date of discharge: 05/07/23 Primary care physician: Anya Ramos MD Admitting clinician: Aron Martin Consults: 05/04/23 11:35 Consult to Hospitalist Routine Comment: Consulting Provider: Hospitalist Reason For Exam: lung CA, s/p VATS right lower lobectomy Attending physician on discharge: Lluvia Man DS: Diagnosis Discharge Diagnosis (1) S/P lobectomy of lung: Start date: 05/04/23 Status: Acute DS: Summary Hospital Course Hospital Course: The pt is a 68 year old male who is pod#3 s/p s/p bronchoscopy, vats right lower lobe wedge resection followed by VATS right lower lobectomy, mediastinal lymph node sampling, intercostal nerve block. doing well with CT in place and cxr yesterday looking good, good a/e and no ptx. no fluctuation in pleurovac or air leak. pt not taking much pain meds. CT removed and tiny apical ptx. pt not symptomatic. ok to dc home and fu in the office Time Attestation Discharge coordination time: Less than 30 minutes Quality: Safe Use of Opioids Does Pt have an Active Cancer Diagnosis on the Problem List?: Yes Opioid Measure Date for [facility] Report: 04/07/23 Opioid Measure Time for [facility] Report: 22:05 Quality: Stroke Does the patient have a stroke diagnosis?: No Physical Exam Vital Signs: Vital Signs: Last Vital Signs Temp 98.9 F 05/07/23 11:27 Pulse 80 05/07/23 11:27 Resp 20 05/07/23 11:27 BP 116/66 05/07/23 11:27 Pulse Ox 94 05/07/23 11:27 O2 Del Method Room Air 05/07/23 11:27 O2 Flow Rate 2 05/05/23 07:46 BMI result Body Mass Index 30.3 DS: Data Data Completed and Pending Pending studies at discharge: Pending at discharge 05/04/23 08:57 Surgical [PTH] Stat 05/04/23 11:40 Surgical [PTH] Routine Labs on day of discharge: Laboratory Results - last 24 hr 05/07/23 05:34 WBC 9.3 RBC 4.06 L Hgb 12.1 L Hct 36.5 L MCV 89.9 MCH 29.8 MCHC 33.2 RDW 13.3 Plt Count 192 MPV 11.3 Absolute Nucleated RBC 0.000 Nucleated RBC % (auto) 0.0 Discharge Plan Discharge Anticipated Discharge Date/Time: 05/07/23 13:46 Patient Disposition: Home Health Service Discharge Diagnosis: s/p right lower lobectomy Referrals: rAon Martin MD [Physician] - 1 Week Anya Ramos MD [Primary Care Provider] - Discharge Medications: New hydrocodone-acetaminophen 5-325 mg tablet 1 tab PO Q4-6H PRN (Reason: pain) Qty: 30 0RF Rx Instructions: Partial Fill upon patient request. Continued fluticasone propionate 50 mcg/actuation [place],Suspension 1 spray INTRANASAL DAILY PRN (Reason: sinus congestion) Rx Instructions: administer into each nostril Discharge Orders: Discharge Order (Routine); Ordered 05/07/23 Ordered By: Lluvia Man Diet: Advance to usual diet Activity on Discharge: No heavy lifting Stand Alone Forms: Patient Portal Discharge page Activity Restrictions/Additional Instructions: VNA service for chest tube site care. Chest tube site change every other with xeroform and dry sterile sponge and tape. No strenuous activities. May shower right before nurse visits. Using incentive spirometer. Ambulation encouraged Care Plan Goals: Return to baseline health and resume normal activities following recovery period. Health Concerns: s/p VATS right lower lobectomy Plan of Treatment: Chest tube removal chest tube site dressing changes F/u in office in 1 week Assessment: Doing well post op. Discharge Date/Time: 05/07/23 16:10
--- NOTE | 2023-05-07 15:52 | MHC.CM.PN ---
Pt is medically cleared for D/C home self-care, CM discussed setting up a VNA for pt an he declines at this time. Pts family present to transport him home.
--- NOTE | 2023-05-07 21:58 | P.DS_ITS ---
DS: Providers Provider Date of Service: 05/07/23 Date of admission: 05/04/23 04:56 Date of discharge: 05/07/23 Primary care physician: Anya Ramos MD Admitting clinician: Aron Martin Consults: 05/04/23 11:35 Consult to Hospitalist Routine Comment: Consulting Provider: Hospitalist Reason For Exam: lung CA, s/p VATS right lower lobectomy Attending physician on discharge: Lluvia Man DS: Diagnosis Discharge Diagnosis (1) S/P lobectomy of lung: Status: Acute DS: Summary Hospital Course Hospital Course: The pt is a 68 year old male who is pod#3 s/p s/p bronchoscopy, vats right lower lobe wedge resection followed by VATS right lower lobectomy, mediastinal lymph node sampling, intercostal nerve block. doing well with CT in place and cxr yesterday looking good, good a/e and no ptx. no fluctuation in pleurovac or air leak. pt not taking much pain meds. CT removed and tiny apical ptx. pt not symptomatic. ok to dc home and fu in the office Status at Discharge Functional status at discharge: independent ambulation Overall status at discharge: patient is progressing back to baseline Time Attestation Discharge coordination time: Greater than 30 minutes Quality: Safe Use of Opioids Does Pt have an Active Cancer Diagnosis on the Problem List?: Yes Opioid Measure Date for [facility] Report: 04/07/23 Opioid Measure Time for [facility] Report: 22:01 Quality: Stroke Does the patient have a stroke diagnosis?: No Physical Exam Vital Signs: Vital Signs: Last Vital Signs Temp 98.9 F 05/07/23 11:27 Pulse 80 05/07/23 11:27 Resp 20 05/07/23 11:27 BP 116/66 05/07/23 11:27 Pulse Ox 94 05/07/23 11:27 O2 Del Method Room Air 05/07/23 11:27 O2 Flow Rate 2 05/05/23 07:46 BMI result Body Mass Index 30.3 Const: General: cooperative, healthy appearing, comfortable and no acute distress Resp: Other: left lung decent air entry both lungs and ct intact. did well with pulling the CT. DS: Data Data Completed and Pending Pending studies at discharge: Pending at discharge 05/04/23 08:57 Surgical [PTH] Stat 05/04/23 11:40 Surgical [PTH] Routine Labs on day of discharge: Laboratory Results - last 24 hr 05/07/23 05:34 WBC 9.3 RBC 4.06 L Hgb 12.1 L Hct 36.5 L MCV 89.9 MCH 29.8 MCHC 33.2 RDW 13.3 Plt Count 192 MPV 11.3 Absolute Nucleated RBC 0.000 Nucleated RBC % (auto) 0.0 Imaging Chest x-ray: Radiologist's impression: ITS Impressions Chest X-Ray 05/04/23 11:53 IMPRESSION: 1. Apically oriented right chest tube. No appreciable pneumothorax. 2. Elevation the right hemidiaphragm. 3. Surgical material left medial lung base. 4. Bibasilar atelectasis. 5. Interstitial prominence. 6. Right lateral chest wall subcutaneous emphysema. Chest X-Ray 05/05/23 07:15 IMPRESSION: Expected postsurgical changes without evidence of pneumothorax but soft tissue emphysema on the right Chest X-Ray 05/06/23 07:25 IMPRESSION: * Hypoinflated lungs. The bibasilar atelectasis is similar in appearance compared to 05/05/2023. * Small right pleural effusion. * Probable trace right pneumothorax with thoracostomy tube in place, status post lower lobectomy. Chest X-Ray 05/07/23 13:41 IMPRESSION: 1. Right chest tube has been removed. There is a tiny residual right apical pneumothorax. 2. Hypoexpanded lungs with right basilar and CP angle haziness likely thickening or effusion. 3. There is right anterolateral chest wall subcutaneous emphysema. Discharge Plan Discharge Anticipated Discharge Date/Time: 05/07/23 13:46 Patient Disposition: Home Health Service Discharge Diagnosis: s/p right lower lobectomy Referrals: Aron Martin MD [Physician] - 1 Week Anya Ramos MD [Primary Care Provider] - Discharge Medications: New hydrocodone-acetaminophen 5-325 mg tablet 1 tab PO Q4-6H PRN (Reason: pain) Qty: 30 0RF Rx Instructions: Partial Fill upon patient request. Continued fluticasone propionate 50 mcg/actuation [place],Suspension 1 spray INTRANASAL DAILY PRN (Reason: sinus congestion) Rx Instructions: administer into each nostril Discharge Orders: Discharge Order (Routine); Ordered 05/07/23 Ordered By: Lluvia Man Diet: Advance to usual diet Activity on Discharge: No heavy lifting Stand Alone Forms: Patient Portal Discharge page Activity Restrictions/Additional Instructions: VNA service for chest tube site care. Chest tube site change every other with xeroform and dry sterile sponge and tape. No strenuous activities. May shower right before nurse visits. Using incentive spirometer. Ambulation encouraged Care Plan Goals: Return to baseline health and resume normal activities following recovery period. Health Concerns: s/p VATS right lower lobectomy Plan of Treatment: Chest tube removal chest tube site dressing changes F/u in office in 1 week Assessment: Doing well post op. Discharge Date/Time: 05/07/23 16:10
== END 2023-05-07 16:10 | disposition home health service (06) | DRG 165 ==
LOC: HO.SSSA 11:39 → HO.IMC 11:55
PROVIDERS: Nurse Practitioner; Physician Assistant Surgical; Surgery; Admitting Provider Surgery; PCP Internal Medicine; Visit Provider Surgery
PROC: 0BTF4ZZ Resection of Right Lower Lung Lobe, Percutaneous Endoscopic Approach (ICD-10-PCS; principal; 2023-05-04 07:30)
PROC: 0BTF4ZZ Resection of Right Lower Lung Lobe, Percutaneous Endoscopic Approach (ICD-10-PCS; 2023-05-04 07:30)
DX: C34.31 Malignant neoplasm of lower lobe, right bronchus or lung (principal); Z85.47 Personal history of malignant neoplasm of testis; Z90.79 Acquired absence of other genital organ(s)
CPT/HCPCS: 36415; 71045; 80048; 81445; 81479; 83036; 85025; 85027; 86850; 86900; 86901; 88305; 88307; 88309; 88331; 88342; 88360; 88374; 93005; A7041; C9290; J0131; J0665; J0690; J1100; J1170; J1885; J2250; J2371; J2405; J2704; J3010; J7120

== ENCOUNTER → 2023-05-04 04:56 | Outpatient (BNV) | payer OTHER, SELFPAY | PROVIDERS: Admitting Provider Surgery; PCP Internal Medicine; Visit Provider Student in an Organized Health Care Education/Training Program | DX: R91.1 Solitary pulmonary nodule (principal); Z90.2 Acquired absence of lung [part of] | CPT/HCPCS: 99221 ==

== ENCOUNTER → 2023-05-04 04:56 | Outpatient (BNV) | payer OTHER, SELFPAY | PROVIDERS: Admitting Provider Surgery; PCP Internal Medicine; Visit Provider Physician Assistant Surgical | DX: Z90.2 Acquired absence of lung [part of] (principal) | CPT/HCPCS: 32663; 32668; 32674; 99024 ==

== ENCOUNTER 2023-05-16 10:11 | Outpatient (AMB) | payer OTHER, SELFPAY ==
--- NOTE | 2023-05-16 10:14 | A.OFFVIS_ITS ---
Intake Vital Signs 05/16/23 10:18 Weight 184 lb BP 143/85 H Blood Pressure Location Rt brachial Position Sitting Pulse 84 Intake Visit Reasons: S/P VATS RLL bx, poss lobectomy Intake Note: Patient here s/p VATS, RLL resection on 05-04-23. Reports incisions healing well. Patient c/o: on and off spitting up clear foam. Rt side of abd feels puffy. Financial Assistant Required: No Accompanied by: Self / Same As Patient Allergies beet Allergy (Intermediate, Verified 05/16/23 10:19) Vomiting procaine [From Novocain] Adverse Reaction (Intermediate, Verified 05/16/23 10:19) has no effect HPI HPI Comments History of Present Illness Details Patient presents for follow-up status post right lower lobectomy. Aside from incisional discomfort which is quite minimal, patient is doing quite well. He has tolerating a diet patient having regular bowel habits. His amylase no respiratory issues or complaints. Pathology was reviewed. Consistent with early stage lung cancer. [facility] Medical History Right wrist fracture Pulmonary nodule Testicular cancer Elevated cholesterol Pre-diabetes RBBB (right bundle branch block) Dyslexia and alexia DJD (degenerative joint disease) Surgical History Hx of left inguinal hernia repair H/O colonoscopy Hx of bilateral orchiectomies Hx of nasal septoplasty Social History Household Members: Family Housing: Apartment Are you a primary health care technician to a significant other at home: No Do you presently have visiting nurse or other home services: No Alcohol intake: current Alcohol intake frequency: holidays/special occasions only Alcohol type: beer Comment: COUNTS CORRECT Patient Tobacco Use Status: Never used Tobacco service: Yes Physical Exam Vital Signs: Last Vital Signs Pulse 84 05/16/23 10:18 BP 143/85 H 05/16/23 10:18 Chest Other: Chest breath sounds bilaterally, all wounds clean dry and intact healing uneventfully. GI Other: Abdomen is soft, protuberant, benign Assessment & Plan Assessment & Plan (1) S/P lobectomy of lung: Comment: bronchoscopy, vats right lower lobe wedge resection followed by VATS right lower lobectomy, mediastinal lymph node sampling, intercostal nerve block 05/04/23 Code(s): Z90.2 - Acquired absence of lung [part of] Plan Patient has been given local instructions, and will follow-up p.r.n.. He has been given to know to resume work May 28. Any issues or complaints, he has been instructed call the office but he will otherwise follow-up p.r.n.. Coding Level of Care Code Global (54781) Diagnoses S/P lobectomy of lung Z90.2
[2023-05-16 10:18] VITALS: BP 143/85; PULSE 84
== END 2023-05-16 10:29 | disposition home or self-care (01) ==
PROVIDERS: PCP Internal Medicine; Visit Provider Surgery
DX: Z90.2 Acquired absence of lung [part of] (principal)
CPT/HCPCS: 99024

== ENCOUNTER → 2023-05-16 10:11 | Outpatient (BNVA) | payer OTHER, SELFPAY | PROVIDERS: PCP Internal Medicine; Visit Provider Surgery | DX: Z09 Encounter for follow-up examination after completed treatment for conditions other than malignant neoplasm (principal); Z90.2 Acquired absence of lung [part of] | CPT/HCPCS: 99212 ==

== ENCOUNTER 2023-06-21 08:16 | Outpatient (AMB) | payer OTHER, SELFPAY ==
--- NOTE | 2023-06-21 08:20 | A.OFFVIS_ITS ---
Intake Vital Signs 06/21/23 08:22 Height 5 ft 6 in Weight 168 lb BMI 27.1 BP 110/70 Blood Pressure Location Rt brachial Position Standing Pulse 69 Pulse Source Pulse Oximeter Pulse Oximetry (%) 98 Oxygen Delivery Method Room Air Intake Visit Reasons: Pulmonary nodule Allergies beet Allergy (Intermediate, Verified 06/21/23 08:25) Vomiting procaine [From Novocain] Adverse Reaction (Intermediate, Verified 06/21/23 08:25) has no effect HPI HPI Comments History of Present Illness Details The patient is a 68-year-old gentleman nonsmoker will was in the [place] was found to have pulmonary nodules. The patient states many years ago he developed shortness of breath he had called EMS he was taken to [facility] where he had a chest x-ray he was told yet ?lung cancer?. He then followed up with his primary care doctor who told him use just nodules. After that he started getting care at the [facility]. The patient apparently had a CT scan of the chest back in September 2021 and again in March 2022. I will was not able to look at those films but it was noted the patient had multiple pulmonary nodules bilaterally largest 1 in the right lower lobe measuring 10 mm in size. Apparently had not changed in size when compared to that interim. He did have a recent CT scan which I personally reviewed. He did bring the CD although, I do not have the formal read as of yet. I did personally reviewed and demonstrated that he had numerous pulmonary nodules but are relatively well-circumscribed. The right lower lobe 10 mm pulmonary nodule appears to be more concerning as it is spiculated and irregular in size in features. Therefore this nodule becomes more concerning because of his appearance. Explained to the patient that if there is any evidence of any change in this nodule that issue be intervened that. We did talk about a PET scan versus a surgical resection. But, we will wait for the final read of the latest CT chest and he will provide me with the old CT chest scan(s). 12/21/2022 the patient is here for a pulmonary follow-up visit. The patient overall has been doing fairly well though nervous about his all pulmonary issue. Denies any significant cough or shortness of breath. He denies any night sweats or weight loss. He currently is not using any inhalers. We did review his recent PET scan that he had at [facility]. The patient does have multiple pulmonary nodules but 1 nodule in the right lower lobe were it measures about a cm and appears to be spiculated. That nodule on the PET scan did not light up was not PET avid. Explained to the patient that this is reassu ring although it is not a definitive results. The patient understands the still a chance that this could be a smoldering slow-moving cancer were may not light up on the PET scan as much. The patient also has other pulmonary nodules that are too small for the accuracy of PET. Therefore will have to continue following does nodules. Under respiratory exam the patient does have a prolonged expiratory phase and some coarse breath sounds with some rhonchi. I did offer him a short-acting beta agonist with the patient at this point would like to hold off on any inhalers. He will monitor his symptoms. If his symptoms worsen he can always call and I can send him a prescription. Otherwise will follow-up in 6 months after he is repeat CT scan of the chest. 06/21/2023 the patient is here for a pulm onary follow-up visit. He underwent surgery for his pulmonary nodule back in April. He had a right lower lobe resection. The patient did have a positive lesion consistent with adenocarcino ma. Stage I. Very small nodule the surgery was with curative intent. Postoperatively he did have some atelectasis at the right base. He was coughing afterwards. He was congested. Moderate severity. He was getting exhausted. Although he is feeling better at this time. I do believe a rescue inhaler will be helpful. The patient should be getting CT scans now every 6 months. He will get the CT scans to the [facility]. he does have diminished breath sounds I do believe a rescue inhaler will be helpful specially if he is coughing to give him some relief. He is going to start exercising more. I did give him an online pulmonary rehabilitation website that he can look into specially since he is still working. Will follow-up in [address] scan[address] [facility] Medical History (Updated 06/21/23 @ 22:13 by Jorje Walsh MD) Lung cancer Right wrist fracture Pulmonary nodule Testicular cancer Elevated cholesterol Pre-diabetes RBBB (right bundle branch block) Dyslexia and alexia DJD (degenerative joint disease) Surgical History Hx of left inguinal hernia repair H/O colonoscopy Hx of bilateral orchiectomies Hx of nasal septoplasty Social History Household Members: Family Housing: Apartment Are you a primary healthcare administrator to a significant other at home: No Do you presently have visiting nurse or other home services: No Alcohol intake: current Alcohol intake frequency: holidays/special occasions only Alcohol type: beer Comment: COUNTS CORRECT Patient Tobacco Use Status: Never used Tobacco service: Yes Review of Systems Const Denies fatigue and Denies fever(s) Eyes Denies blurry vision ENT Denies nasal congestion Card Denies chest pain Resp Reports chest congestion, Reports cough and Denies wheezing GI Reports no additional complaints Musc Reports no additional complaints Skin/Breast Denies rash Neuro Reports no additional complaints Endo Denies fatigue Jason/Lymph Denies lymphadenopathy Aller/Immun Denies wheezing Physical Exam Vital Signs: Last Vital Signs Pulse 69 06/21/23 08:22 BP 110/70 06/21/23 08:22 Pulse Ox 98 06/21/23 08:22 Oxygen Delivery Method Room Air 06/21/23 08:22 BMI result Body Mass Index 27.1 Const General: comfortable HEENT Head: Yes atraumatic Neck Neck: Yes supple Chest Chest palpation & inspection: normal inspection of the chest Resp Effort & Inspection: normal respiratory effort and prolonged expiratory phase Auscultation: no rales, no rhonchi and diminished lung sounds Cardio Rate: regular rate Rhythm: regular rhythm Heart sounds: S1 normal heart sound present and S2 normal heart sound present GI Palpation (GI): Soft to palpation Skin General skin exam: no rashes or lesions noted Extrem General: Yes no clubbing, cyanosis or edema Assessment & Plan Assessment & Plan (1) Pulmonary nodules: Code(s): R91.8 - Other nonspecific abnormal finding of lung field (2) Abnormal bone marrow examination: Code(s): R89.8 - Other abnormal findings in specimens from other organs, systems and tissues (3) Lung cancer: Comment: Stage 1A s/p resection 04/2023 Code(s): C34.90 - Malignant neoplasm of unspecified part of unspecified bronchus or lung Qualifiers: Laterality: right Lung location: lower lobe of lung Qualified Code(s): C34.31 - Malignant neoplasm of lower lobe, right bronchus or lung Plan start [facility]ADMIN[facility] CT chest [place] 6 months [place]) start [facility] pulmonary rehab F/U 6 months Medications: New albuterol sulfate 90 mcg/actuation 2 inhalations inhalation Q6H 30 days PRN 18 grams 12RF shortness of breath or wheezing J44.9 - Chronic obstructive pulmonary disease, unspecified Coding Level of Care Code Est Pt Level 4 (22626) Diagnoses Pulmonary nodules R91.8 Abnormal bone marrow examination R89.8 Malignant neoplasm of lower lobe of right lung C34.31 Laterality: right Lung location: lower lobe of lung Time Spent (min) 18
[2023-06-21 08:22] VITALS: BP 110/70; PULSE 69; O2SAT 98; BMI 27.1
== END 2023-06-21 08:47 | disposition home or self-care (01) ==
PROVIDERS: PCP Internal Medicine; Visit Provider Hospitalist
DX: R91.8 Other nonspecific abnormal finding of lung field (principal); R89.8 Other abnormal findings in specimens from other organs, systems and tissues; C34.31 Malignant neoplasm of lower lobe, right bronchus or lung
CPT/HCPCS: 99214

== ENCOUNTER → 2023-06-21 08:16 | Outpatient (BNVA) | payer OTHER, SELFPAY ==
--- NOTE | 2023-09-20 11:05 | W.PM.OPN ---
Operative Note Operative Note Date of Service: 09/20/23 Pulmonary Resection Hilar Station: 7 Mediastinal Station #1: 5 Mediastinal Station #2: [id number] General Surg. - Synoptic Notes Pulmonary Resection Hilar Station: 7 Mediastinal Station #1: 5 Mediastinal Station #2: [id number]
== END ==
PROVIDERS: PCP Internal Medicine; Visit Provider Hospitalist
DX: R91.8 Other nonspecific abnormal finding of lung field (principal); R89.8 Other abnormal findings in specimens from other organs, systems and tissues; C34.31 Malignant neoplasm of lower lobe, right bronchus or lung
CPT/HCPCS: 99212

== ENCOUNTER 2023-11-01 09:10 | Outpatient (AMB) | payer OTHER, SELFPAY ==
--- NOTE | 2023-11-01 09:27 | A.OFFVIS_ITS ---
Vital Signs 11/01/23 09:28 Height 5 ft 6 in Weight 175 lb BMI 28.2 Pulse 66 Pulse Source Pulse Oximeter Pulse Oximetry (%) 97 Oxygen Delivery Method Room Air Intake Visit Reasons: CT Chest Results Mental Health Clinician Required: No Allergies beet Allergy (Intermediate, Verified 11/01/23 09:29) Vomiting procaine [From Novocain] Adverse Reaction (Intermediate, Verified 11/01/23 09:29) has no effect HPI Comments Details: The patient is a 68-year-old gentleman nonsmoker will was in the [place] was found to have pulmonary nodules. The patient states many years ago he developed shortness of breath he had called EMS he was taken to [facility] where he had a chest x-ray he was told yet ?lung cancer?. He then followed up with his primary care doctor who told him use just nodules. After that he started getting care at the [facility]. The patient apparently had a CT scan of the chest back in September 2021 and again in March 2022. I will was not able to look at those films but it was noted the patient had multiple pulmonary nodules bilaterally largest 1 in the right lower lobe measuring 10 mm in size. Apparently had not changed in size when compared to that interim. He did have a recent CT scan which I personally reviewed. He did bring the CD although, I do not have the formal read as of yet. I did personally reviewed and demonstrated that he had numerous pulmonary nodules but are relatively well-circumscribed. The right lower lobe 10 mm pulmonary nodule appears to be more concerning as it is spiculated and irregular in size in features. Therefore this nodule becomes more concerning because of his appearance. Explained to the patient that if there is any evidence of any change in this nodule that issue be intervened that. We did talk about a PET scan versus a surgical resection. But, we will wait for the final read of the latest CT chest and he will provide me with the old CT chest scan(s). 12/21/2022 the patient is here for a pulmonary follow-up visit. The patient overall has been doing fairly well though nervous about his all pulmonary issue. Denies any significant cough or shortness of breath. He denies any night sweats or weight loss. He currently is not using any inhalers. We did review his recent PET scan that he had at [facility]. The patient does have multiple pulmonary nodules but 1 nodule in the right lower lobe were it measures about a cm and appears to be spiculated. That nodule on the PET scan did not light up was not PET avid. Explained to the patient that this is reassuring although it is not a definitive results. The patient understands the still a chance that this could be a smoldering slow-moving cancer were may not light up on the PET scan as much. The patient also has other pulmonary nodules that are too small for the accuracy of PET. Therefore will have to continue following does nodules. Under respiratory exam the patient does have a prolonged expiratory phase and some coarse breath sounds with some rhonchi. I did offer him a short-acting beta agonist with the patient at this point would like to hold off on any inhalers. He will monitor his symptoms. If his symptoms worsen he can always call and I can send him a prescription. Otherwise will follow-up in 6 months after he is repeat CT scan of the chest. 06/21/2023 the patient is here for a pulmonary follow-up visit. He underwent surgery for his pulmonary nodule back in April. He had a right lower lobe resection. The patient did have a positive lesion consistent with adenocarcinoma. Stage I. Very small nodule the surgery was with curative intent. Postoperatively he did have some atelectasis at the right base. He was coughing afterwards. He was congested. Moderate severity. He was getting exhausted. Although he is feeling better at this time. I do believe a rescue inhaler will be helpful. The patient should be getting CT scans now every 6 months. He will get the CT scans to the [facility]. he does have diminished breath sounds I do believe a rescue inhaler will be helpful specially if he is coughing to give him some relief. He is going to start exercising more. I did give him an online pulmonary rehabilitation website that he can look into specially since he is still working. Will follow-up in [address] scan[address] 11/01/2023 the patient is here for a pulmonary follow-up visit. Apparently since we last spoke he did undergo CT chest at the [facility]. it was found to be abnormal therefore the report was sent over. We did request the images. I did personally review the images with him. The patient is concerned about the reading. Explained to patient that he is status post surgery so therefore there will be some postoperative changes. He does have a small loculated pleural effusion which is typical after surgery. He also has some areas of scarring that have a nodular appearance. He also has other pulmonary nodules noted. We did start him on some antibiotics is in cases developing a lower respiratory infection or ?walking pneumonia ?. He is tolerating the Augmentin. I will present him at conference and review the images with thoracic surgery. Will plan to repeat the CT scan in 2-3 months to see if there is an interval progression of disease. But at this point I would not intervene on the findings based on his recent surgery and does postoperative changes are expected. [facility] Medical History (Updated 06/21/23 @ 22:13 by Jorje Walsh MD) Lung cancer Right wrist fracture Pulmonary nodule Testicular cancer Elevated cholesterol Pre-diabetes RBBB (right bundle branch block) Dyslexia and alexia DJD (degenerative joint disease) Surgical History Hx of left inguinal hernia repair H/O colonoscopy Hx of bilateral orchiectomies Hx of nasal septoplasty Social History Household Members: Family Housing: Apartment Are you a primary child care counselor to a significant other at home: No Do you presently have visiting nurse or other home services: No Alcohol intake: current Alcohol intake frequency: holidays/special occasions only Alcohol type: beer Comment: COUNTS CORRECT Patient Tobacco Use Status: Never used Tobacco service: Yes Review of Systems Const Denies fatigue and Denies fever(s) Eyes Denies blurry vision ENT Denies nasal congestion Card Denies chest pain Resp Reports chest congestion, Reports cough and Denies wheezing GI Reports no additional complaints Musc Reports no additional complaints Skin/Breast Denies rash Neuro Reports no additional complaints Endo Denies fatigue Jason/Lymph Denies lymphadenopathy Aller/Immun Denies wheezing Physical Exam Vital Signs: Last Vital Signs Pulse 66 11/01/23 09:28 Pulse Ox 97 11/01/23 09:28 Oxygen Delivery Method Room Air 11/01/23 09:28 BMI result Body Mass Index 28.2 Const General: comfortable HEENT Head: Yes atraumatic Neck Neck: Yes supple Chest Chest palpation & inspection: normal inspection of the chest Breast/axilla inspection: normal inspection of the breasts Resp Effort & Inspection: normal respiratory effort and prolonged expiratory phase Auscultation: no rales, no rhonchi and diminished lung sounds Cardio Rate: regular rate Rhythm: regular rhythm Heart sounds: S1 normal heart sound present and S2 normal heart sound present GI Palpation (GI): Soft to palpation Skin General skin exam: no rashes or lesions noted Extrem General: Yes no clubbing, cyanosis or edema Assessment & Plan Assessment & Plan (1) Pulmonary nodules: Code(s): R91.8 - Other nonspecific abnormal finding of lung field Category: Medical (2) Abnormal bone marrow examination: Code(s): R89.8 - Other abnormal findings in specimens from other organs, systems and tissues Category: Medical (3) Lung cancer: Comment: Stage 1A s/p resection 04/2023 Code(s): C34.90 - Malignant neoplasm of unspecified part of unspecified bronchus or lung Category: Medical Qualifiers: Laterality: right Lung location: lower lobe of lung Qualified Code(s): C34.31 - Malignant neoplasm of lower lobe, right bronchus or lung Plan PADMINI complete Augmentin CT chest [place] 2 months [place]) [facility] [place] pulmonary rehab will discuss at Lung conference F/U 2-3 months Coding Level of Care Code Est Pt Level 4 (44699) Complex EM visit Add On G2211 Diagnoses Pulmonary nodules R91.8 Abnormal bone marrow examination R89.8 Malignant neoplasm of lower lobe of right lung C34.31 Laterality: right Lung location: lower lobe of lung Time Spent (min) 18
[2023-11-01 09:28] VITALS: PULSE 66; O2SAT 97; BMI 28.2
== END 2023-11-01 09:49 | disposition home or self-care (01) ==
PROVIDERS: PCP Internal Medicine; Visit Provider Hospitalist
DX: R91.8 Other nonspecific abnormal finding of lung field (principal); R89.8 Other abnormal findings in specimens from other organs, systems and tissues; C34.31 Malignant neoplasm of lower lobe, right bronchus or lung
CPT/HCPCS: 99214; G2211

== ENCOUNTER → 2023-11-01 09:10 | Outpatient (BNVA) | payer OTHER, SELFPAY | PROVIDERS: PCP Internal Medicine; Visit Provider Hospitalist | DX: R91.8 Other nonspecific abnormal finding of lung field (principal); R89.8 Other abnormal findings in specimens from other organs, systems and tissues; C34.31 Malignant neoplasm of lower lobe, right bronchus or lung | CPT/HCPCS: 99212 ==

== ENCOUNTER 2024-01-15 08:23 | Outpatient (REF) | payer OTHER, SELFPAY | END 2024-01-15 08:24 | disposition home or self-care (01) | LOC: CF 08:23 | PROVIDERS: PCP Internal Medicine; Visit Provider Hospitalist | DX: R91.8 Other nonspecific abnormal finding of lung field (principal); C34.31 Malignant neoplasm of lower lobe, right bronchus or lung | CPT/HCPCS: 99212 ==

== ENCOUNTER 2024-01-15 08:23 | Outpatient (AMB) | payer OTHER, SELFPAY ==
--- NOTE | 2024-01-15 08:33 | A.OFFVIS_ITS ---
Vital Signs 01/15/24 08:34 Height 5 ft 6 in Weight 179 lb 10.828 oz BMI 29.0 BP 128/70 Blood Pressure Location Lt brachial Position Sitting Pulse 98 Pulse Source Pulse Oximeter Pulse Oximetry (%) 60 L Oxygen Delivery Method Room Air Intake Visit Reasons: Pulmonary nodules Oil Laboratory Analyst Required: No Allergies beet Allergy (Intermediate, Verified 01/15/24 08:33) Vomiting procaine [From Novocain] Adverse Reaction (Intermediate, Verified 01/15/24 08:33) has no effect HPI Comments Details: The patient is a 68-year-old gentleman nonsmoker will was in the [employer] was found to have pulmonary nodules. The patient states many years ago he developed shortness of breath he had called EMS he was taken to [facility] where he had a chest x-ray he was told yet ?lung cancer?. He then followed up with his primary care doctor who told him use just nodules. After that he started getting care at the [facility]. The patient apparently had a CT scan of the chest back in September 2021 and again in March 2022. I will was not able to look at those films but it was noted the patient had multiple pulmonary nodules bilaterally largest 1 in the right lower lobe measuring 10 mm in size. Apparently had not changed in size when compared to that interim. He did have a recent CT scan which I personally reviewed. He did bring the CD although, I do not have the formal read as of yet. I did personally reviewed and demonstrated that he had numerous pulmonary nodules but are relatively well-circumscribed. The right lower lobe 10 mm pulmonary nodule appears to be more concerning as it is spiculated and irregular in size in features. Therefore this nodule becomes more concerning because of his appearance. Explained to the patient that if there is any evidence of any change in this nodule that issue be intervened that. We did talk about a PET scan versus a surgical resection. But, we will wa it for the final read of the latest CT chest and he will provide me with the old CT chest scan(s). 12/21/2022 the patient is here for a pulmonary follow-up visit. The patient overall has been doing fairly well though nervous about his all pulmonary issue. Denies any significant cough or shortness of breath. He denies any night sweats or weight loss. He currently is not using any inhalers. We did review his recent PET scan that he had at [facility]. The patient does have multiple pulmonary nodules but 1 nodule in the right lower lobe were it measures about a cm and appears to be spiculated. That nodule on the PET scan did not light up was not PET avid. Explained to the patient that this is reassuring although it is not a definitive results. The patient understands the still a chance that this could be a smoldering slow-moving cancer were may not light up on the PET scan as much. The patient also has other pulmonary nodules that are too small for the accuracy of PET. Therefore will have to continue following does nodules. Under respiratory exam the patient does have a prolonged expiratory phase and some coarse breath sounds with some rhonchi. I did offer him a short-acting beta agonist with the patient at this point would like to hold off on any inhalers. He will monitor his symptoms. If his symptoms worsen he can always call and I can send him a prescription. Otherwise will follow-up in 6 months after he is repeat CT scan of the chest. 06/21/2023 the patient is here for a pulmonary follow-up visit. He underwent surgery for his pulmonary nodule back in April. He had a right lower lobe resection. The patient did have a positive lesion consistent with adenocarcinoma. Stage I. Very small nodule the surgery was with curative intent. Postoperatively he did have some atelectasis at the right base. He was coughing afterwards. He was congested. Moderate severity. He was getting exhausted. Although he is feeling better at this time. I do believe a rescue inhaler will be helpful. The patient should be getting CT scans now every 6 months. He will get the CT scans to the [facility]. he does have diminished breath sounds I do believe a rescue inhaler will be helpful specially if he is coughing to give him some relief. He is going to start exercising more. I did give him an online pulmonary rehabilitation website that he can look into specially since he is still working. Will follow-up in [address] scan[address] 11/01/2023 the patient is here for a pulmonary follow-up visit. Apparently since we last spoke he did undergo CT chest at the [facility]. it was found to be abnormal therefore the report was sent over. We did request the images. I did personally review the images with him. The patient is concerned about the reading. Explained to patient that he is status post surgery so therefore there will be some postoperative changes. He does have a small loculated pleural effusion which is typical after surgery. He also has some areas of scarring that have a nodular appearance. He also has other pulmonary nodules noted. We did start him on some antibiotics is in cases developing a lower respiratory infection or ?walking pneumonia ?. He is tolerating the Augmentin. I will present him at conference and review the images with thoracic surgery. Will plan to repeat the CT scan in 2-3 months to see if there is an interval progression of disease. But at this point I would not intervene on the findings based on his recent surgery and does postoperative changes are expected. 01/15/2024 the patient is here for pulmonary follow-up visit. The patient overall is doing well. Denies any respiratory complaints. Denies any chest pains or shortness breath. He has been trying to exercise regularly. He did have a repeat CT scan of the chest to follow-up the abnormal findings. It appears that his pleural effusion has improved in the airspace disease also improved. He has multiple pulmonary nodules noted however. Will await the final read on the CT scans so they can compare his pulmonary nodules that he has had before. The pulmonary nodules that did personally review them although I could not compare them and they are smooth border and they appeared to be about similar size of the ones that are being described. Therefore, will plan to repeat the CT scan in 6 months. [facility] Medical History (Updated 11/03/23 @ 08:29 by Lovely Bonilla PA-C) Lung cancer Testicular cancer Elevated cholesterol Pre-diabetes RBBB (right bundle branch block) Dyslexia and alexia DJD (degenerative joint disease) Right wrist fracture Surgical History (Updated 11/02/23 @ 15:33 by Lovely Bonilla PA-C) History of lobectomy of lung History of bilateral orchiectomies History of left inguinal hernia repair History of nasal septoplasty History of colonoscopy Social History Household Members: Family Housing: Apartment Are you a primary healthcare science specialist to a significant other at home: No Do you presently have visiting nurse or other home services: No Alcohol intake: current Alcohol intake frequency: holidays/special occasions only Alcohol type: beer Comment: COUNTS CORRECT Patient Tobacco Use Status: Never used Tobacco service: Yes Review of Systems Const Denies fatigue and Denies fever(s) Eyes Denies blurry vision ENT Denies nasal congestion Card Denies chest pain Resp Reports chest congestion, Reports cough and Denies wheezing GI Reports no additional complaints Musc Reports no additional complaints Skin/Breast Denies rash Neuro Reports no additional complaints Endo Denies fatigue Jason/Lymph Denies lymphadenopathy Aller/Immun Denies wheezing Physical Exam Vital Signs: Last Vital Signs Pulse 98 01/15/24 08:34 BP 128/70 01/15/24 08:34 Pulse Ox 60 L 01/15/24 08:34 Oxygen Delivery Method Room Air 01/15/24 08:34 BMI result Body Mass Index 29.0 Const General: comfortable HEENT Head: Yes atraumatic Neck Neck: Yes supple Chest Chest palpation & inspection: normal inspection of the chest Breast/axilla inspection: normal inspection of the breasts Resp Effort & Inspection: normal respiratory effort and No prolonged expiratory phase Auscultation: no rales, no rhonchi and diminished lung sounds Cardio Rate: regular rate Rhythm: regular rhythm Heart sounds: S1 normal heart sound present and S2 normal heart sound present GI Palpation (GI): Soft to palpation Skin General skin exam: no rashes or lesions noted Extrem General: Yes no clubbing, cyanosis or edema Assessment & Plan Assessment & Plan (1) Pulmonary nodules: Code(s): R91.8 - Other nonspecific abnormal finding of lung field Category: Medical (2) Lung cancer: Comment: (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) Code(s): C34.90 - Malignant neoplasm of unspecified part of unspecified bronchus or lung Category: Medical Qualifiers: Laterality: right Lung location: lower lobe of lung Qualified Code(s): C34.31 - Malignant neoplasm of lower lobe, right bronchus or lung Plan [facility]ADMINI complete Aug[facility] CT [facility] although awaiting final read of recent CT chest On line pulmonary rehab will discuss at Lung conference F/U 6 months Coding Level of Care Code Est Pt Level 4 (81092) Diagnoses Pulmonary nodules R91.8 Malignant neoplasm of lower lobe of right lung C34.31 Laterality: right Lung location: lower lobe of lung Time Spent (min) 18
[2024-01-15 08:34] VITALS: BP 128/70; PULSE 98; O2SAT 60; BMI 29.0
== END 2024-01-15 08:57 | disposition home or self-care (01) ==
PROVIDERS: PCP Internal Medicine; Visit Provider Hospitalist
DX: R91.8 Other nonspecific abnormal finding of lung field (principal); C34.31 Malignant neoplasm of lower lobe, right bronchus or lung
CPT/HCPCS: 99214

== ENCOUNTER 2024-07-02 08:15 | Outpatient (AMB) | payer OTHER, SELFPAY ==
[2024-07-02 08:18] VITALS: BP 128/76; PULSE 62; O2SAT 97; BMI 30.2
--- NOTE | 2024-07-02 08:18 | MHC.OFFVIS ---
Vital Signs 07/02/24 08:18 Height 5 ft 6 in Weight 187 lb 6.287 oz BMI 30.2 BP 128/76 Blood Pressure Location Rt brachial Position Sitting Pulse 62 Pulse Source Pulse Oximeter Pulse Oximetry (%) 97 Oxygen Delivery Method Room Air Intake Visit Reasons: Pulmonary nodules Allergies beet Allergy (Intermediate, Verified 07/02/24 08:22) Vomiting procaine [From Novocain] Adverse Reaction (Intermediate, Verified 07/02/24 08:22) has no effect HPI Comments Details: The patient is a 69-year-old gentleman nonsmoker will was in the [employer] was found to have pulmonary nodules. The patient states many years ago he developed shortness of breath he had called EMS he was taken to [facility] where he had a chest x-ray he was told yet ?lung cancer?. He then followed up with his primary care doctor who told him use just nodules. After that he started getting care at the [facility]. The patient apparently had a CT scan of the chest back in September 2021 and again in March 2022. I will was not able to look at those films but it was noted the patient had multiple pulmonary nodules bilaterally largest 1 in the right lower lobe measuring 10 mm in size. Apparently had not changed in size when compared to that interim. He did have a recent CT scan which I personally reviewed. He did bring the CD although, I do not have the formal read as of yet. I did personally reviewed and demonstrated that he had numerous pulmonary nodules but are relatively well-circumscribed. The right lower lobe 10 mm pulmonary nodule appears to be more concerning as it is spiculated and irregular in size in features. Therefore this nodule becomes more concerning because of his appearance. Explained to the patient that if there is any evidence of any change in this nodule that issue be intervened that. We did talk about a PET scan versus a surgical resection. But, we will wait for the final read of the latest CT chest and he will provide me with the old CT chest scan(s). 12/21/2022 the patient is here for a pulmonary follow-up visit. The patient overall has been doing fairly well though nervous about his all pulmonary issue. Denies any significant cough or shortness of breath. He denies any night sweats or weight loss. He currently is not using any inhalers. We did review his recent PET scan that he had at [facility]. The patient does have multiple pulmonary nodules but 1 nodule in the right lower lobe were it measures about a cm and appears to be spiculated. That nodule on the PET scan did not light up was not PET avid. Explained to the patient that this is reassuring although it is not a definitive results. The patient understands the still a chance that this could be a smoldering slow-moving cancer were may not light up on the PET scan as much. The patient also has other pulmonary nodules that are too small for the accuracy of PET. Therefore will have to continue following does nodules. Under respiratory exam the patient does have a prolonged expiratory phase and some coarse breath sounds with some rhonchi. I did offer him a short-acting beta agonist with the patient at this point would like to hold off on any inhalers. He will monitor his symptoms. If his symptoms worsen he can always call and I can send him a prescription. Otherwise will follow-up in 6 months after he is repeat CT scan of the chest. 06/21/2023 the patient is here for a pulmonary follow-up visit. He underwent surgery for his pulmonary nodule back in April. He had a right lower lobe resection. The patient did have a positive lesion consistent with adenocarcinoma. Stage I. Very small nodule the surgery was with curative intent. Postoperatively he did have some atelectasis at the right base. He was coughing afterwards. He was congested. Moderate severity. He was getting exhausted. Although he is feeling better at this time. I do believe a rescue inhaler will be helpful. The patient should be getting CT scans now every 6 months. He will get the CT scans to the [facility]. he does have diminished breath sounds I do believe a rescue inhaler will be helpful specially if he is coughing to give him some relief. He is going to start exercising more. I did give him an online pulmonary rehabilitation website that he can look into specially since he is still working. Will follow-up in [address] scan[address] 11/01/2023 the patient is here for a pulmonary follow-up visit. Apparently since we last spoke he did undergo CT chest at the [facility]. it was found to be abnormal therefore the report was sent over. We did request the images. I did personally review the images with him. The patient is concerned about the reading. Explained to patient that he is status post surgery so therefore there will be some postoperative changes. He does have a small loculated pleural effusion which is typical after surgery. He also has some areas of scarring that have a nodular appearance. He also has other pulmonary nodules noted. We did start him on some antibiotics is in cases developing a lower respiratory infection or ?walking pneumonia ?. He is tolerating the Augmentin. I will present him at conference and review the images with thoracic surgery. Will plan to repeat the CT scan in 2-3 months to see if there is an interval progression of disease. But at this point I would not intervene on the findings based on his recent surgery and does postoperative changes are expected. 01/15/2024 the patient is here for pulmonary follow-up visit. The patient overall is doing well. Denies any respiratory complaints. Denies any chest pains or shortness breath. He has been trying to exercise regularly. He did have a repeat CT scan of the chest to follow-up the abnormal findings. It appears that his pleural effusion has improved in the airspace disease also improved. He has multiple pulmonary nodules noted however. Will await the final read on the CT scans so they can compare his pulmonary nodules that he has had before. The pulmonary nodules that did personally review them although I could not compare them and they are smooth border and they appeared to be about similar size of the ones that are being described. Therefore, will plan to repeat the CT scan in 6 months. 07/02/2024 the patient is here for a pulmonary follow-up visit. Overall he is doing well. His last CT scan was back in December demonstrating a 6.7 cm semisolid nodule. Indeed is concerning nodule. The patient's last CT scan again was in December 2023. [facility]. His next CAT scan should been back in April. Based on the fact the patient did have lung cancer resected back in April 2023 he needs to continue with CAT scans every 6 months for least 2-3 years and then he can go to yearly follow-up for least 5 years. Still though with this concerning nodule it may change the follow-up in the required interventions. Therefore, [facility] that [facility] is delayed and we do not want a delay his medical care. At this point the patient continue to exercise regularly. I did offer him rescue inhaler the patient denied at this time that he needed 1. He will call if this changes. In the meantime if he does not [facility] in the next couple weeks he can always call and I will order a CAT scan through our system. [facility] Medical History (Updated 11/03/23 @ 08:29 by Lovely Bonilla PA-C) Lung cancer Testicular cancer Elevated cholesterol Pre-diabetes RBBB (right bundle branch block) Dyslexia and alexia DJD (degenerative joint disease) Right wrist fracture Surgical History (Updated 11/02/23 @ 15:33 by Lovely Bonilla PA-C) History of lobectomy of lung History of bilateral orchiectomies History of left inguinal hernia repair History of nasal septoplasty History of colonoscopy Social History Household Members: Family Housing: Apartment Are you a primary congregational care pastor to a significant other at home: No Do you presently have visiting nurse or other home services: No Alcohol intake: current Alcohol intake frequency: holidays/special occasions only Alcohol type: beer Comment: COUNTS CORRECT Patient Tobacco Use Status: Never used Tobacco service: Yes Review of Systems Const Denies fatigue and Denies fever(s) Eyes Denies blurry vision ENT Denies nasal congestion Card Denies chest pain Resp Reports cough and Denies wheezing GI Reports no additional complaints Musc Reports no additional complaints Skin/Breast Denies rash Neuro Reports no additional complaints Endo Denies fatigue Jason/Lymph Denies lymphadenopathy Aller/Immun Denies wheezing Physical Exam Vital Signs: Last Vital Signs Pulse 62 07/02/24 08:18 BP 128/76 07/02/24 08:18 Pulse Ox 97 07/02/24 08:18 Oxygen Delivery Method Room Air 07/02/24 08:18 BMI result Body Mass Index 30.2 Const General: comfortable HEENT Head: Yes atraumatic Neck Neck: Yes supple Chest Chest palpation & inspection: normal inspection of the chest Breast/axilla inspection: normal inspection of the breasts Resp Effort & Inspection: normal respiratory effort and No prolonged expiratory phase Auscultation: no rales, no rhonchi and diminished lung sounds Cardio Rate: regular rate Rhythm: regular rhythm Heart sounds: S1 normal heart sound present and S2 normal heart sound present GI Palpation (GI): Soft to palpation Skin General skin exam: no rashes or lesions noted Extrem General: Yes no clubbing, cyanosis or edema Assessment & Plan Assessment & Plan (1) Pulmonary nodules: Code(s): R91.8 - Other nonspecific abnormal finding of lung field Category: Medical (2) Lung cancer: Comment: (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 Last CT chest was 12/2023, therefore, his CT chest is delayed. On line pulmonary rehab F/U 6 months Coding Level of Care Code Est Pt Level 4 (16468) Diagnoses Pulmonary nodules R91.8 Malignant neoplasm of lower lobe of right lung C34.31 Laterality: right Lung location: lower lobe of lung Time Spent (min) 17
--- OUTSIDE RECORDS SUMMARY | 2024-07-02 08:28 | XMS_ITS | Clinical Summary ---
Author Organization [facility] ity Address [address] [place] [address] Care Team Providers Care Underbaster Name Role Phone Unavailable Primary Care Provider Unavailabl e Social History Tobacco Use Types Packs/Day Years Used Date Smoking Tobacco: Never Assessed Sex and Gender Information Value Date Recorded Sex Assigned at Not on file Legal Sex Male 1:35 PM EDT Gender Identity Not on file Sexual Orientation Not on file Plan of Treatment Health Maintenance Due Date Last Done Comments DTaP,Tdap,and Td Vaccines (1 - Tdap) 1973 Pneumococcal Vaccine: 50+ Ye ars (1 of 1 - PCV) 2004 Zoster Vaccines (1 of 2) 2004 Abdominal Aortic Aneurysm (A AA) Screen 10/18/2023 Cholesterol Screening (Lipid Panel) 10/18/2023 Colorectal Cancer Screening: Colonoscopy 10/18/2023 Depression Screening 10/18/2023 Falls Risk Assessment 10/18/2023 Hepatitis C Screening 10/18/2023 Social Influencers of Health Screening 10/18/2023 COVID-19 Vaccine ( - 2023-2 5 season) 2023 Influenza Vaccine (#1) 2023 RSV Immunization Adult Patie nts (1 - 1-dose 75+ series) 2029 HIB Vaccines Aged Out No longer eligi ble based on patient's age to complete this topic HPV Vaccines Aged Out No longer eligi ble based on patient's age to complete this topic Hepatitis A Vaccines Aged Out No long er eligible based on patient's age to complete this topic Hepatitis B Vaccines Aged Out No long er eligible based on patient's age to complete this topic IPV Vaccines Aged Out No longer eligi ble based on patient's age to complete this topic MMR Vaccines Aged Out No longer eligi ble based on patient's age to complete this topic Meningococcal ACWY Vaccine Aged Out N o longer eligible based on patient's age to complete this topic Meningococcal B Vaccine Aged Out No l onger eligible based on patient's age to complete this topic RSV Immunization Patients Un johnny 20 months Aged Out No longer eligible b ased on patient's age to complete this topic Varicella Vaccines Aged Out No longer eligible based on patient's age to complete this topic
--- OUTSIDE RECORDS SUMMARY | 2024-07-02 08:28 | XMS_ITS | Clinical Summary ---
Author Organization [facility] Address [address] [place] [address] Phone Care Team Providers Care Microbiology Director Name Role Phone [place] [facility] Unavailable Unavailable [place], Administration Primary Care Provider Unavailable Reason for Visit and Chief Complaint New Patient Plan of Treatment Pending Tests Order Diagnosis Results Due Ordering P rovider Follow Up - Return to School / Work Note Mendoza Briggs MD Last Documented On 4 8:14AM ; [place] [facility] Follow Up - Appointment 1 Month Oth frac tures of lower end of right radius, init for clos fx 04/10/23 Mendoza Briggs MD Last Documented On 4 8:14AM ; [place] [facility] Follow Up - Return to School / Work Note Mendoza Briggs MD Last Documented On 4 8:18AM ; [facility] Assessments Includes: Assessments from this encounter No Assessments Recorded Medical Equipment - Implanted Devices Includes: Current Devices No Medical Equipment Recorded Medications Administered Includes: Administered Medications from this encounter No Administered Medications Recorded Vital Signs Includes: Vital Signs from this encounter Vital Name 04/10/2023 08:10A Pulse Rate-Sitting (bpm) 79 Temp-Temporal 97.9 Height (in) 66 Weight (lb) 180 Body Mass Index 29.1 Body Surface Area 1.9 Oxygen Saturation (%) 96 Last Documented: On 04/10/2023 8:10AM ; [facility] Results Includes: Results discussed during this encounter No Results Recorded For Specified Dates History of Present Illness Includes: History of Present Illness from this encounter No History of Present Illness Recorded Social History No Social History Recorded - Smoking Status Unknown Medical History Includes: Medical History addressed during this encounter No Medical History Recorded Family History Includes: Family History addressed during this encounter No Family History Recorded Review of Systems Includes: Review of Systems from this encounter No Review of Systems Recorded Mental Status Includes: Mental Status from this encounter No Mental Status Recorded Functional Status Includes: Functional Status from this encounter No Functional Status Recorded Physical Exam Includes: Physical Exam from this encounter Encounters Encounter Provider Location Date Check-In Time Check-Out Time Diagnosis New Patient Mendoza Briggs MD [facility], 8:00AM 8:15AM Insurance Includes: Active Insurance Policies Plan Name Member ID Group # Subscriber Relationship Effect lisa Dates 1 - [facility] [id number] 65 [facility] Clinical Notes Includes: Clinical Notes from this encounter * Progress note Date Encounter Last Documented by 04/10/2023 New Patient Last documented on 04/10/2023; 8:14 AM, Mendoza Briggs MD; [facility], Physical Findings - Vitals taken 04/10/2023 08:10 am Pulse Rate-Sitting 79 bpm Temp-Temporal 97.9 F Height 66 in Weight 180 lbs Body Mass Index 29.1 kg/m2 Body Surface Area 1.9 m2 Oxygen Saturation 96 % Chief complaint: Right wrist injury History of Present Illness: This is a 67-year-old man who slipped and fell on the ice on 04/04/2023. He injured his right wrist. He apparently was seen by his [place] provider who performed an x-ray of the right wrist as well as a CT scan. They were concerned about the findings and referred him to the emergency room where he was seen on 04/06/2023. There was concern about a possible fracture of the distal radius. He declined sugar-tong splint at that time but was given a commercial wrist splint. He reports mild persistent pain over the radial aspect of his wrist. Physical exam: The right wrist has mild diffuse swelling. There is resolving ecchymosis on the volar aspect of the wrist. There is mild tenderness over the distal radial metaphysis. There is mild pain with range of motion of the wrist. Skin and neurovascular exam is otherwise intact to the right upper extremity. Imaging: Radiographs of the right wrist from 04/06/2023 demonstrate a nondisplaced cortical fracture of the dorsal distal radius. The fracture is not visible on the AP or oblique views. There is no shortening, angulation, or displacement. The fracture is extra-articular. Impression: Fracture right distal radius Plan: The patient has a commercial forearm splint which I advised him to wear full- time except for bathing. He should not drive at this time. He should not bear any weight on that extremity or do any lifting greater than 1 to 2 pounds. He is asked to follow-up in 4 weeks for reexamination and x-ray of the right wrist. He works driving delivering auto parts. I gave him a note for no work until his next visit. Plan StartCited - Oth fractures of lower end of right radius, init for clos fx Follow Up/Appointment: 1 Month EndCited StartCited - Other Follow Up/Return to: School / Work Note EndCited
--- OUTSIDE RECORDS SUMMARY | 2024-07-02 08:28 | XMS_ITS ---
Author Organization [facility] Address [address] [place] [address] Phone Care Team Providers Care Coding Analyst Name Role Phone [facility] Unavailable Unavailable 's, Administration Primary Care Provider Unavailable Plan of Treatment No Plan of Treatment Recorded Assessments Includes: Assessments for all patient encounters No Assessments Recorded Medical Equipment - Implanted Devices Includes: Current and historical Devices No Medical Equipment Recorded Medications Administered Includes: Administered Medications in patient's chart No Administered Medications Recorded Results Includes: Results from 07/03/2023 through 07/02/2024 No Results Recorded For Specified Dates History of Present Illness History of Present Illness not supported for this document type No History of Present Illness Recorded Social History No Social History Recorded - Smoking Status Unknown Medical History Includes: Medical History in patient's chart No Medical History Recorded Family History Includes: Family History in patient's chart No Family History Recorded Review of Systems Review of Systems not supported for this document type No Review of Systems Recorded Mental Status No Mental Status Recorded Functional Status No Functional Status Recorded Physical Exam Physical Exam not supported for this document type No Physical Exam Recorded Insurance Includes: Active Insurance Policies Plan Name Member ID Group # Subscriber Relationship Effect lias Dates 1 - [facility] [id number] 64 Phillip Cordero [facility] Clinical Notes Includes: Signed Clinical Notes starting from 03/06/2022 No Clinical Notes Recorded
--- OUTSIDE RECORDS SUMMARY | 2024-07-02 08:29 | XMS_ITS ---
Care Plan - [facility] [place] Created on: July 02, 2024 Phillip Cordero : 1955 Sex: Male Author Organization [facility] Address [address] [place] [address] Phone Care Team Providers Care Circulator Name Role Phone [facility] Unavailable Unavailable 's, Administration Primary Care Provider Unavailable
--- OUTSIDE RECORDS SUMMARY | 2024-07-02 08:29 | XMS_ITS | Clinical Summary ---
Author Organization [facility] Address [address] [place] [address] Phone Care Team Providers Care Electrical Instrument Technician Name Role Phone [facility] Unavailable Unavailable [facility], Administration Primary Care Provider Unavailable Reason for Visit and Chief Complaint Established Patient Plan of Treatment Pending Tests Order Diagnosis Results Due Ordering P rovider Follow Up - Return to School / Work Note Mendoza Briggs MD Last Documented On 4 9:10AM ; [facility] Follow Up - Appointment PRN Oth frac tures of lower end of right radius, init for clos fx 05/02/23 Mendoza Briggs MD Last Documented On 4 9:10AM ; [facility] Ass[facility]ments Includes: Assessments from this encounter No Assessments Recorded Medical Equipment - Implanted Devices Includes: Current Devices No Medical Equipment Recorded Medications Administered Includes: Administered Medications from this encounter No Administered Medications Recorded Results Includes: Results discussed during this encounter [...] Location Date Check-In Time Check-Out Time Diagnosis Established Patient Mendoza Briggs MD [facility] 05/02/19 24 8:40AM 9:09AM Insurance Includes: Active Insurance Policies Plan Name Member ID Group # Subscriber Relationship Effect lisa Dates 1 - On license of [facility] [id number] 64 [place] Self Clinical Notes Includes: Clinical Notes from this encounter * Progress note Date Encounter Last Documented by 05/02/2023 Established Patient Last tess woods on 05/02/2023; 9:10 AM, Mendoza Briggs MD; [facility], Physical Findings Chief complaint: Follow-up fracture right distal radius History of Present Illness: This is a 68-year-old man who is being treated nonsurgically for a nondisplaced fracture of the dorsal distal radius. He has been wearing a commercial forearm splint. Date of injury was 04/04/2023. He has no complaints today. He reports that he is no longer having any pain in the wrist. He discontinued the brace a few days ago. Physical exam: The right wrist has no swelling or ecchymosis. There is no tenderness. He has full painless motion of the wrist. Skin and neurovascular exams are intact to the right upper extremity. Imaging: Radiographs of the right wrist taken today are compared to the prior images. There has been no loss of fracture reduction. Fracture callus is present. Impression: Fracture right distal radius Plan: The patient may gradually increase his activity to tolerance. I released him to full duty work activities as of 05/04/2023. He is having some other surgery which will put him out of work for another couple of weeks. He may return to our office as needed. Plan StartCited - Oth fractures of lower end of right radius, init for clos fx Follow Up/Appointment: PRN EndCited StartCited - Other Follow Up/Return to: School / Work Note EndCited
--- OUTSIDE RECORDS SUMMARY | 2024-07-02 08:29 | XMS_ITS | Encounter Summary ---
Author Name [facility] Organization [facility] Address [address] [place] [id number] Care Team Providers Care Axle Turner Name Role Phone KIRSTINANTHONY ASHRAF Primary Care Provider Unavail able Insurance Providers: All historical and current Section Date Range: From patient's date of to the date document was created. This section includes the names of all active insurance providers for the patient. Insurance Provider Type of Coverage Plan Name Start of Policy Coverage End of Policy Coverage Group Number Member ID Insurance Provider's Telephone Number Policy Perry's Name Patient's Relationship to Policy Perry MEDICARE (WNR) MEDICARE (M) PART A Mar 27, 2019 PART A [id number] Nicole IBARRA PATIENT MEDICARE (WNR) MEDICARE (M) PART A Mar 27, 2019 PART A [id number] Nicole IBARRA PATIENT Selected Encounter This section includes the information on record at [place] for the Encounter. Date/Time Encounter Type Encounter Description Reason Provider Source Oct 10, 2023 02:30 PM OFFICE O/P EST MOD 30 MIN PRIMARY CARE/MEDICINE ICD-10-CM E78.00 Pure hypercholesterole mei, unspecified ANDREW NOYOLA F IHE Encounter Template Text not used by [facility] Assessments - Encounter Diagnoses This section includes the primary and secondary diagnoses documented for the Encounter. Date/Time Primary/Secondary Diagnosis Diagnosis Name Provider Source Oct 10, 2023 03:19 PM PRIMARY Pure hypercholesterolem ia, unspecified CHARANNAYELYANDREW Leone [facility] Oct 10, 2023 03:19 PM SECONDARY Abnormal findings on dx imaging of oth body structures ANDREW NOYOLA [facility] Oct 10, 2023 03:19 PM SECONDARY Malig neoplasm of unsp testis, unsp descended or undescended CHARANNAYELYSulemaANDREW F [facility] Oct 10, 2023 03:19 PM SECONDARY Prediabetes ANDREW NOYOLA [facility] Plan of Treatment: Future Appointments (+ 6 months) and Future Tests (+/- 45 days) The Plan of Treatment section includes future care activities for the patient from all [facility]. This section includes future appointments and future orders which are active, pending or scheduled. Future Appointments This section includes appointments that were scheduled to occur 6 months from the date of the Encounter, up to a maximum of 20 appointments. The data comes from all [place] treatment facilities. Appointment Date/Time Appointment Type Appointme nt Facility Name Jan 10, 2024 08:15 AM AMBULATORY - NONE [facility] Jan 15, 2024 08:45 AM AMBULATORY - MEDICINE [facility] Lab Results: +/- 30 days of the encounter This section includes the Chemistry and Hematology Lab Results on record with [place] for the patient. Radiology Reports and Pathology Reports are provided separately, in subsequent sections. Lab Results This section contains the Chemistry/Hematology Results that were resulted 30 days before or 30 daysafter the date of the Encounter. Date/Time Source Result Type Result - Unit Interpretation Reference Range Comment Oct 03, 2023 08:17 AM [facility] LIPID PANEL FASTING Specimen Type: SERUM No comment entered. Ordering Provider: ANDREW NOYOLA Report Released Date/Time: Jul 13, 2023 09:13 AM Reporting Lab: [facility] [address] [facility] [phone] Performing Lab: [facility] [address] [facility] [address] CHOLESTEROL 224 mg/dL H TRIGLYCERIDE 84 mg/dL 0-150 LDL calculated 139 mg/dL H 0-129 CHOL/HDL 3.3 HDL CHOLESTEROL 68 mg/dL H 40-60 Oct 03, 2023 08:17 AM [facility] BASIC METABOLIC PANEL (fasting) Specime n Type: SERUM No comment entered. Ordering Provider: ANDREW NOYOLA Report Released Date/Time: Jul 13, 2023 09:13 AM Reporting Lab: [address] [address] Performing Lab: [address] [address] UREA NITROGEN 14 mg/dL 7-25 GLUCOSE 92 mg/dL 65-100 SODIUM 141 mmol/L 135-145 POTASSIUM 4.7 mmol/L 3.5-5.0 CHLORIDE 108 mmol/L 100-110 CO2 23 meq/L 20-30 CREATININE, Serum 0.81 mg/dL 0.50-1.40 eGFR(CKD-EPI 2020) >90 mL/min >60 Oct 03, 2023 08:17 AM [facility] LIVER FUNCTION Specimen Type: SERUM No comment entered. Ordering Provider: ANDREW NOYOLA Report Released Date/Time: Jul 13, 2023 09:13 AM Reporting Lab: [address] [address] Performing Lab: [address] [address] PROTEIN,TOTAL 6.8 g/dL 6.0-8.3 ALBUMIN 3.7 g/dL 3.5-5.0 ALKALINE PHOSPHATASE 53 U/L 40-150 AST 13 U/L 5-34 ALT 15 U/L BILIRUBIN, TOTAL 0.9 mg/dL 0.2-1.2 Oct 03, 2023 08:17 AM [facility] HEMOGLOBIN A1C PANEL Specimen Type: BLOOD Comment: Values obtained from A1C measurements can vary. For atypical A1C assays, a reported value of 7.0 could actually be between 6.72 and 7.28 if measured by a reference method. A reported value of 9.0 could actually be between 8.73 and 9.27. Ref: http://www.ngs p.org/CAPdata. asp Ordering Provider: ANDREW NOYOLA Report Released Date/Time: Jul 13, 2023 09:13 AM Reporting Lab: [address] [address] Performing Lab: [facility] [place] [address] [address] HEMOGLOBIN A1C 5.5 4.0-5.6 Oct 03, 2023 08:17 AM [facility] TSH Specimen Type: SERUM No comment entered. Ordering Provider: ANDREW NOYOLA Report Released Date/Time: Jul 13, 2023 09:13 AM Reporting Lab: [facility] [place] [address] [address] Performing Lab: [facility] [place] [address] [address] TSH 1.84 u[IU]/mL 0.35-5.00 Oct 03, 2023 08:17 AM [facility] CBC AND DIFF (AUTO) Specimen Type: BLOOD No comment entered. Ordering Provider: ANDREW NOYOLA Report Released Date/Time: Jul 13, 2023 09:13 AM Reporting Lab: [facility] [place] [address] [address] Performing Lab: [facility] [place] [address] [address] WBC 6.76 10*3/uL 4.50-11.00 RBC 4.98 10*6/uL 4.23-5.66 HGB 13.7 g/dL 12.8-17 HCT 42.2 39.2-50.4 MCV 84.7 fL 82-99 MCHC 32.5 g/dL 30.8-35.1 PLT 175 10*3/uL 140-360 RDW-CV 16.1 H 12.0-16.0 MONO, ABS 0.47 10*3/uL 0.30-1.10 MCH 27.5 pg 26.2-32.6 NEUT % 44.9 43.7-75.8 LYMPH % 38.0 14.0-42.3 MONO % 7.0 5.1-13.7 EOS % 8.9 H 0.4-6.8 BASO % 0.9 0.1-2.0 NEUT, ABS 3.04 10*3/uL 2.20-7.60 LYMPH, ABS 2.57 10*3/uL 1.00-3.20 EOS, ABS 0.60 10*3/uL H 0.03-0.44 BASO, ABS 0.06 10*3/uL 0.01-0.13 IMMATURE GRAN % 0.3 0.0-0.7 IMMATURE GRAN, ABS 0.02 10*3/uL 0.00-0.06 NRBC % 0.0 0.0-0.0 NRBC, ABS 0.00 10*3/uL 0.00-0.00 Vital Signs: All taken on the encounter date This section contains inpatient and outpatient Vital Signs collected on the date of the Encounter. Date/Time Temperature Pulse Blood Pressure Respiratory Rate SP02 Pain Height Weight Body Mass Index Source Oct 10, 2023 02:36 PM 64 124/71 97 177 29 [facility] IELD Social History: Smoking Status (Most current) and Tobacco Use (All prior to encounter date) This section includes the most current, and the historical, smoking and tobacco- related health factors from the [place] facility where the Encounter took place. Current Smoking Status This section includes the most current smoking, or tobacco-related health factor, from the [place] facility where the Encounter took place. Date/Time Current Smoking Status Comment Facil ity Jan 10, 2023 08:30 AM AR-TOBACCO NEVER USED [facility] Tobacco Use History This section includes a history of the smoking, or tobacco-related health factors, that were collected on or before the date of the Encounter. The data comes from the AR facility where the Encounter took place. Date/Time Smoking Status/Tobacco Use Comment F acility Jan 10, 2022 03:30 PM AR-TOBACCO NEVER USED [facility] Jan 11, 2018 09:08 AM AR-TOBACCO NEVER USED [facility] Dec 26, 2016 03:04 PM LIFETIME NON-TOBACCO USER [facility] Mar 12, 2015 08:25 AM LIFETIME NON-TOBACCO USER [facility] Radiology Reports: +/- 30 days of the encounter Radiology Reports For cases when an order for radiology services may have been completed prior to the date of the Encounter, the report list includes the Radiology Reports that were completed up to 30 days before dateof the Encounter. For cases when an order for radiology services may have been completed after the date of the Encounter, the report list also includes the Radiology Reports that were completed up to30 days after date of the Encounter. The data comes from all [place] treatment facilities. Date/Time Radiology Report Provider Source Oct 10, 2023 07:[address] W/O CONT: SHANE IBARRA [id number] -[id number] M Exm Date: OCT 10, 2023@07:58 Req Phys: CHARANANDREW COONEY Pat Loc: CWM/SO/PACT EIGHT WH (Req'g Lo Img Loc: NHM/CT Service: Unknown [facility] [place] [facility] , (Case [id number] COMPLETE) CT THORAX W/O CONT (CT Detailed) CPT:50468 Reason for Study: 6 mo follow up for rll mass Clinical History: Report Status: Verified Date Reported: OCT 10, 2023 Date Verified: OCT 10, 2023 Framing Inspector E-Sig:/ES/CHRIS SINGH JR Report: Study: Noncontrast CT scan of the chest. Comparison: CT scan of the chest from April 06, 2023, September 28, 2022, April 18, 2022, April 20, 2021, December 24, 2020 and November 29, 2017. TECHNIQUE: Contiguous axial [address] imaging is performed from the lung apices through the lung bases without the administration of intravenous contrast as per standard department protocol. Subsequently, sagittal and coronal reformats were generated. The lack of intravenous contrast inherently limits the evaluation of hilar structures, vascular structures, and abnormal enhancement patterns. Lower than standard dose was utilized limiting sensitivity for fine parenchymal detail. Dose Parameters: CTDI(vol): 3.7 mGy. DLP: 126.7 mGy*cm. Findings: Chest: Lungs: The patient is now status post partial right lower lobe segmentectomy with postoperative volume loss changes, parenchymal scarring, pleural thickening and elevation of the right hemidiaphragm. There is postoperative inferior migration of the 6.7 mm solid, ovoid, well-circumscribed right middle lobe nodule with interval enlargement, 8-241, previously measuring 5.4 mm, 8-246. Several previously described bilateral solid pulmonary nodules do not appear significantly changed including 4.3 mm within the right upper lobe, 8-106, 4.0 mm within the right upper lobe, 8-162, 4.3 mm in the right upper lobe, 8-173, 3.4 mm within the left lower lobe, 8-262, and 4.0 mm within the left upper lobe, 8-198. These nodules remain indeterminate and continued attention on follow-up imaging is recommended. No acute pulmonary process is identified. The tracheobronchial tree is patent. No pneumothorax. Pleural: No pleural effusion or thickening. Mediastinum/hilum/lymph nodes: Normal. No mediastinal lymphadenopathy by size criteria. No axillary lymphadenopathy by size criteria. Heart and pericardium: The heart size is normal. No pericardial effusion. Vessels: Atherosclerotic changes of the aorta and coronary arteries. Normal caliber thoracic aorta. Chest wall and lower neck: Normal. Included thyroid is normal. Upper abdomen: The visualized abdominal structures appear normal. Skeletal: Normal age-related degenerative changes. No suspicious bone lesions identified. Impression: Interval postoperative changes from right lower lobe mass resection with growth of a now 6.7 mm solid indeterminate right middle lobe mass in a patient with numerous bilateral previously described pulmonary nodules. Continued short interval follow-up imaging is recommended as well as correlation with pathology from the resected right lower lobe mass. If the right lower lobe mass was malignant, closer interval follow-up of these bilateral pulmonary nodules is recommended. Currently, follow-up noncontrast CT scan of the chest in 6 months time is recommended but correlation should be performed, as described above. Primary Diagnostic Code: Significant Abnormality Attention Needed Secondary Diagnostic Codes: POSSIBLE MALIGNANCY Lung Nodule Follow up team Primary Interpreting Staff: CHRIS SINGH JR, Radiologist (Framing Inspector) /CHRIS HARRISON JR [facility] Encounter Notes: All associated encounter notes This section contains the clinical notes associated to the Encounter. Date/Time Encounter Note(s) Provider Source Oct 10, 2023 02:37 PM PREVENTIVE MEDICIN E NURSING NOTE: LOCAL TITLE: CLINICAL REMINDERS/NURSING STANDARD TITLE: PREVENTIVE MEDICINE NURSING NOTE DATE OF NOTE: OCT 10, 2023@14:37 ENTRY DATE: OCT 10, 2023@14:37:32 AUTHOR: LUCI GALLO COSIGNER: URGENCY: STATUS: COMPLETED Suicide Screen: C-SSRS Screening [place] Suicide Severity Rating Scale (C-SSRS) screener 1. Over the past month, have you wished you were or wished you could go to sleep and not wake up? No 2. Over the past month, have you had any actual thoughts of killing yourself? No 3. Over the past month, have you been thinking about how you might do this? Response not required due to responses to other questions. 4. Over the past month, have you had these thoughts and had some intention of acting on them? Response not required due to responses to other questions. 5. Over the past month, have you started to work out or worked out the details of how to kill yourself? Response not required due to responses to other questions. 6. If yes, at any time in the past month did you intend to carry out this plan? Response not required due to responses to other questions. 7. In your lifetime, have you ever done anything, started to do anything, or prepared to do anything to end your life (for example, collected pills, obtained a gun, gave away valuables, went to the roof but didn't jump)? No 8. If YES, was this within the past 3 months? Response not required due to responses to other questions. Avg Risk Colorectal Cancer Screen: AVERAGE RISK colorectal cancer screening is due based on information available to this clinical reminder Patient declined screening/surveillance. Patient educated on the benefits of colorectal cancer screening/surveillance and the risk if screening/surveillance is not completed. Level of Understanding: Fair Pneumococcal Conjugate Vaccine (PCV15/PCV20): Refuses PCV vaccine Immunization: PNEUMOCOCCAL CONJUGATE, UNSPECIFIED FORMULATION Refusal Reason: PATIENT DECISION Patient refuses all immunization(s) in the PneumoPCV group Date Documented: 10/10/23 14:38 Influenza Immunization: No influenza vaccination was received during the recent influenza season. COVID-19 Immunization: Refused Moderna Monovalent COVID-19 vaccine Immunization: COVID-19 (MODERNA), MRNA, LNP-S, PF, 50 MCG/0.5 ML (AGES 12+ YEARS) Refusal Reason: PATIENT DECISION Patient refuses all immunization(s) in the COVID-19 group Date Documented: 10/10/23 14:38 Tdap Immunization: The patient declines to receive the recommended dose of Tdap vaccine. Immunization: TDAP Refusal Reason: PATIENT DECISION Patient refuses all immunization(s) in the TDAP group Date Documented: 10/10/23 14:38 Herpes Zoster (Shingles) Vaccine: The patient declines to receive the recommended dose of zoster (shingles) vaccine. Immunization: ZOSTER RECOMBINANT Refusal Reason: PATIENT DECISION Patient refuses all immunization(s) in the ZOSTER group Date Documented: 10/10/23 14:39 RHS Screen: RHS Screen Environmental Check Upon inquiry, the individual reports that the environment is safe to proceed. Informed Consent to Screen and Document The individual consents to proceed with screening. The individual consents to documentation of responses. PRIMARY SCREEN: In the past 12 months, how often did a current or former intimate partner (e.g., boyfriend, girlfriend, , , sexual partner): 1. Scream or curse at you Never 2. Insult or talk down to you Never 3. Threaten you with harm Never 4. Physically hurt you Never 5. Force or pressure you to have sexual contact against your will, or when you were unable to say no Never ?? The HITS tool (items 1-4 above) is US copyright protected by Larry Morris MD, and the user has full rights to use it throughout the [place] system. PRIMARY SCREEN RESULT: The Primary Screen is NEGATIVE. The individual answered never to all forms of IPV above (i.e., answered never to all 5 items) The individual accepts education and/or resources: No EDUCATION: The individual indicated readiness to learn. Education offered during this session as noted above. The individual indicated understanding by asking relevant questions and making appropriate comments. No barriers to learning were observed or identified. /taylor/ LUCI GALLO LPN Licensed Practical Nurse Signed: 10/10/2023 14:39 LUCI GALLO [facility] Oct 10, 2023 02:21 PM PHYSICIAN NOTE: LOCAL TITLE: NOTE STANDARD TITLE: PHYSICIAN NOTE DATE OF NOTE: OCT 10, 2023@14:21 ENTRY DATE: OCT 10, 2023@14:21:15 AUTHOR: ANDREW NOYOLA EXP COSIGNER: URGENCY: STATUS: COMPLETED HISTORY OF PRESENT ILLNESS: SHANE IBARRA, is a 68 yo MALE [place], who presents at the [facility] for follow up visit for chronic medical conditions. The [place] supposed to repeat CT of the chest in October like 6 months after right lower lobectomy, but the [place] last week become very anxious and requested to have a CAT scan done this month. He had a CAT scan done today and the results were discussed the patient today in office Non- VA providers PulmonaryDrPamela Walsh Active problems - Computerized Problem List is the source for the following: -abnormal CT chest -Hyperlipidemia -seasonal allergies -Borderline hyperglycemia The following VA and Non-VA meds were reconciled with patient: Active Outpatient Medications (including Supplies): Issue Date Status Last Fill Active Outpatient Medications Refills Expiration 1) ALBUTEROL 90MCG (CFC-F) 200D ORAL INHL ACTIVE Issu:06-21-23 Qty: 3 for 90 days Sig: INHALE 2 Refills: 3 Last:06-21-23 PUFFS BY MOUTH EVERY 6 HOURS NEEDED Expr:06-21-24 FOR SHORTNESS OF BREATH OR WHEEZING 2) FEXOFENADINE HCL 180MG TAB Qty: 90 for ACTIVE Issu:01-10-23 90 days Sig: TAKE ONE TABLET BY MOUTH Refills: 1 Last:01-10-23 ONCE DAILY FOR ALLERGIES Expr:01-11-24 3) FLUTICASONE PROP 50MCG 120D NASAL INHL ACTIVE Issu:01-10-23 Qty: 3 for 90 days Sig: INSTILL 2 Refills: 3 Last:01-10-23 SPRAYS INTO EACH NOSTRIL ONCE DAILY Expr:01-11-24 4) SODIUM CHLORIDE 0.65% SOLN NASAL SPRAY ACTIVE Issu:01-10-23 Qty: 135 for 90 days Sig: INSTILL 2 Refills: 3 Last:01-10-23 SPRAYS INTO EACH NOSTRIL SIX TIMES A Expr:01-11-24 DAY NEEDED Start Date Active Non-VA Medications Refills Expiration 1) Non-VA VITAMIN D3 (CHOLECALCIFEROL) TAB ACTIVE SiUNIT BY MOUTH TWICE DAILY 5 Total Medications ALLERGIES: ========= NYQUIL D LAB HISTORY: BMP, liver function test, TSH, CBC, hemoglobin A1c, GFRnormal limits Total cholesterol 224 with HDL 68 and LDL 139 PMH: hypercholesterolemia, bilateral multiple lung nodules , prediabetes, SURGICAL HISTORY: deviated septum surgery- 2018 b/l orchiectomy - for testicular cancer- 1995 FAMILY HISTORY: mother- Alzheimer's father- CVA/ smoking SOCIAL HISTORY: with no children Smoking denies Drugs denies Alcohol denies HISTORY: PERIOD OF SERVICE - [facility] FROM Jan TO Apr COMBAT SERVICE INDICATED: No REVIEW OF SYSTEMS: No fever, chills, No chest pain shortness of breath at rest or with exertion No cough or wheezing No abdominal pain nausea or vomiting No headaches or dizziness PHYSICAL EXAMINATION: WD/overweight seems to be in NAD S1-S2 positive, RRR MEAGHAN, CTA bilateral Abdomen soft nontender to palpation No edema lower extremities AAO x3; ambulates without help ASSESSMENT/PLAN: -abnormal CT chest -CT of the chest done today and the results are discussed the patient today in office The results are as below Impression: Interval postoperative changes from right lower lobe mass resection with growth of a now 6.7 mm solid indeterminate right middle lobe mass in a patient with numerous bilateral previously described pulmonary nodules. I advised the [place] to have CD with CT chest requested from [facility] and follow-up with his thoracic surgeon with the results for further management The verbalizes understanding -Hyperlipidemia-improving with diet and exercise He is still not interested in starting statins We will repeat blood work with next appointment -seasonal allergies-without any symptoms at this moment and he states does not uses fexofenadine fluticasone and saline spray and she would like them to be removed from his chart -Borderline hyperglycemia -glucose level normal limits on the last blood work FOLLOW UP: ========= RTC -February follow-up with fasting labs for hyperlipidemia seasonal allergies and lung nodule Today's documentation was made using voice recognition software. This note may contain spelling/grammatical errors secondary to this software. Every effort is made to correct errors, but if mistakes are found they need to be taken in context. UPCOMING APPOINTMENTS: 10/10/2023 14:30 CWM/SO/PACT EIGHT WH No barriers; Patient understands and agrees to current treatment plan. If pt has any questions, concerns, or changes in current health status he/she will call or come in to the VA. Medication Reconciliation: Outpatient: Has the patient been taking medications as documented in the EMLR? YES: The patient has been taking medications as documented in the EMLR. Essential Medication List for Review used to complete this medication reconciliation. INCLUDED IN THIS LIST: Alphabetical list of active outpatient prescriptions dispensed from this AR (local) and dispensed from another AR or DoD facility (remote) as well as inpatient orders (local, pending and active), local clinic medications, locally documented non-VA medications, and local prescriptions that have or been discontinued in the past 90 days. - All changes in medications, including all non-VA/Herbal/OTC medications were entered into CPRS. - If there were any medications the patient should no longer take, they were discontinued. - The patient/caregiver was instructed to update this list, discard old lists, and take this list to the next appointment, whether with a VA or non-VA provider. JLV Link Data on this list may not be complete. Please check JLV. Allergies/ADRs (Tool #5) FACILITY ALLERGY/ADR -------- [facility] [place] [facility] D [facility] ACETAMINOPHEN/DEXTROMETHORPHAN/ DOXYLAMINE/PSEUDOEPHEDRINE Med Recon NoGlossary (Tool #1) INCLUDED IN THIS LIST: Alphabetical list of active outpatient prescriptions dispensed from this AR (local) and dispensed from another AR or [facility] facility (remote) as well as inpatient orders (local pending and active), local clinic medications, locally documented non-VA medications, and local prescriptions that have or been discontinued in the past 90 days. Non-VA Meds Last Documented On: Mar 12, 2015 NOTE The display of VA prescriptions dispensed from another AR or DoD facility (remote) is limited to active outpatient prescription entries matched to National Drug File at the originating site and may not include some items such as investigational drugs, compounds, etc. NOT INCLUDED IN THIS LIST: Medications self-entered by the patient into personal health records (i.e. [employer]) are NOT included in this list. Non-VA medications documented outside this AR, remote inpatient orders (regardless of status) and remote clinic medications are NOT included in this list. The patient and provider must always discuss medications the patient is taking, regardless of where the medication was dispensed or obtained. OUTPT ALBUTEROL 90MCG (CFC-F) 200D ORAL INHL (Status = Active) INHALE 2 PUFFS BY MOUTH EVERY 6 HOURS NEEDED FOR SHORTNESS OF BREATH OR WHEEZING Rx# [id number] Last Released: 06/21/23 Qty/Days Supply: Rx Expiration Date: 06/21/24 Refills Remainin Indication: FOR BRONCHOSPASM OUTPT FEXOFENADINE HCL 180MG TAB (Status = Active) TAKE ONE TABLET BY MOUTH ONCE DAILY FOR ALLERGIES Rx# [id number] Last Released: 01/10/23 Qty/Days Supply: Rx Expiration Date: 01/11/24 Refills Remainin Indication: FOR SEASONAL RUNNY NOSE OUTPT FLUTICASONE PROP 50MCG 120D NASAL INHL (Status = Active) INSTILL 2 SPRAYS INTO EACH NOSTRIL ONCE DAILY Rx# [id number] Last Released: 01/10/23 Qty/Days Supply: Rx Expiration Date: 01/11/24 Refills Remainin Indication: FOR NASAL IRRITATION/INFLAMMATION OUTPT SODIUM CHLORIDE 0.65% SOLN NASAL SPRAY (Status = Active) INSTILL 2 SPRAYS INTO EACH NOSTRIL SIX TIMES A DAY NEEDED Rx# [id number] Last Released: 01/10/23 Qty/Days Supply: Rx Expiration Date: 01/11/24 Refills Remainin Indication: FOR STUFFY NOSE Non-VA VITAMIN D3 (CHOLECALCIFEROL) TAB TAKE 500UNIT BY MOUTH TWICE DAILY Patient wants to buy from Non-VA pharmacy. SUPPLIES /taylor/ ANDREW NOYOLA MD PRIMARY CARE PHYSICIAN Signed: 10/10/2023 15:19 ANDREW NOYOLA LAP[place]
--- OUTSIDE RECORDS SUMMARY | 2024-07-02 08:29 | XMS_ITS | Continuity of Care Document ---
Author Name [facility] Organization [facility] Care Team Providers Care Toll Gate Tender Name Role Phone [facility] Unavailable Unavailable Problems Combined list of problems from Department of Defense and Veterans Affairs facilities. It does not include entries that were removed or entered in error. Problem Status Onset Date Problem Type Date of Resolution Comments Source Primary malignant neoplasm of testis Active 996 Condition Dec 22, 2020 Entered By: JAMES COCHRAN Comment: bilateral orchiectomy age 41 [place] Family history of malignant tumor of testis Active 995 Condition May 02, 2017 Entered By: YIN MENON Comment: h/ bilateral testicular cancer at 41 [facility] Allergic Rhinitis (SCT 91468412) Active Condition [place] Degenerative joint disease involving multiple joints Active Condition [facility] Deviated nasal septum Active Condition [facility] Dyslexia Active Condition [facility] EKG: complete right bundle branch block Active Condition [place] H/O: hematuria Active Condition Dec Entered By: CHAYA MAYFIELD Comment: most likely dipstick pseudohematuria as no increased RBC's seen on microscopy [facility] Hypercholesterolemia Active Condition [facility] [place] [facility] Multiple nodules of lung Active Condition Nov 29, 2017 Entered By: CHAYA MAYFIELD Comment: Had CT chest in Nov 2017 and was read that multiple nodules were small and most likely benign-surveilla nce CT recommended for Nov Entered By: ZOEY KIDD Comment: CT 04/17 stable nodulesApr 20, 2024 Entered By: ROXANA VEE Comment: 01/10/24 LDCT multiple nodules, stable, repeat one year [facility] Prediabetes (SNOMED CT [id number]) Active Condition [facility] [place] [facility] Diagnosis: ICD-10-CM E78.00 Pure hypercholesterolemia, unspecified Active Diagnosis [place] Diagnosis: ICD-10-CM M79.631 Pain in right forearm Active Diagnosis [place] Diagnosis: ICD-10-CM M25.531 Pain in right wrist Active Diagnosis [place] Medications Combined list of outpatient medications from Department of Defense and Veterans Affairs facilities.Medications provided include 1) outpatient medications from the last 15 months, and 2) patient-reported medications. Medication Details Route Status Patient Instructions Prescription Expires Prescription Number Last Dispense Date Ordering Provider Order Date Order Qty Source ACETAMINOPH EN 500MG TAB TAKE ONE TABLET BY MOUTH TWICE DAILY NEEDED FOR PAIN ORAL 05/05/2023 [id number] KAYLIE NOYOLA F 2023 30 [facility] ALBUTEROL 90MCG/ACTUA T (CFC-F) INHL,ORAL,8 .5GM DOSE COUNTER INHALE 2 PUFFS BY MOUTH EVERY 6 HOURS NEEDED FOR SHORTNES S OF BREATH OR WHEEZING RESPIR ATORY (INHAL ATION) 06/21/2024 [id number] IZA KAPOOR 2023 3 [facility] [place] [facility] AMOXICILLIN TRIHYDRATE 875MG/CLAVU LANATE K 125MG TAB TAKE 1 TABLET BY MOUTH TWICE DAILY FOR 10 DAYS FOR INFECTIO N ORAL 11/25/2023 [id number] 4 IZA KAPOOR 2023 20 [facility] HYDROCODONE 5MG/ACETAMI NOPHEN 325MG TAB TAKE 1 TABLET BY MOUTH EVERY 4 TO 6 HOURS NEEDED FOR PAIN ORAL 06/04/2023 [id number] LEI GALE 2023 30 [facility] VITAMIN D3 (CHOLECALCI FEROL) TAB TAKE 500UNIT BY MOUTH TWICE DAILY ORAL ACTIVE Kamille MAYFIELD 2014 [facility] Allergies, Adverse Reactions, Alerts Combined list of allergies from Department of Defense and Veterans Affairs facilities. It does not include entries that were removed or entered in error. Substance Category Reaction Severity Reaction type Status Date Reported Comments Source SHAMIKA Rubin Propensity to adverse reactions to drug (finding) Nightmares active 8 [facility] Immunizations Combined list of available immunizations from the Department of Defense and Veterans Affairs facilities. Immunization Series Date Given Administered By Site Reaction Lot Number CVX Code Drug Instrumentation Engineer Status Comments Source ZOSTER (HISTORICAL) 2015 121 complet ed [place] ZOSTER LIVE 2015 121 complet ed [facility] [place] [facility] Results Combined list of recent chemistry, hematology and other laboratory results from Department of Defense and Veterans Affairs, ranging from 15 months to all on record, depending upon the facility. Order Name Results Value Reference Range Date Interpretation Specimen Comments Source LIPID PANEL FASTING CHOLESTERO L [MASS/VOLU ME] IN SERUM OR PLASMA 224 mg/dL 10/02 H Specimen Type: SERUM No comment entered. Ordering Provider: FRED NOYOLA Report Released Date/Time: Jul 13, 2023 09:13 AM Reporting Lab: [address] [address] Performing Lab: [facility] [address] [facility] LIPID PANEL FASTING TRIGLYCERI DE [MASS/VOLU ME] IN SERUM OR PLASMA 84 mg/dL 0 - 150 10/02 Specimen Type: SERUM No comment entered. Ordering Provider: FRED NOYOLA Report Released Date/Time: Jul 13, 2023 09:13 AM Reporting Lab: [address] [address] Performing Lab: [facility] [address] [facility] [address] [facility] LIPID PANEL FASTING CHOLESTERO L IN LDL [MASS/VOLU ME] IN SERUM OR PLASMA BY CALCULATIO N 139 mg/dL 0 - 129 10/02 H Specimen Type: SERUM No comment entered. Ordering Provider: FRED NOYOLA Report Released Date/Time: Jul 13, 2023 09:13 AM Reporting Lab: [address] [address] Performing Lab: [facility] [address] [place] LIPID PANEL FASTING CHOLESTERO L.TOTAL/CH OLESTEROL IN HDL [MASS RATIO] IN SERUM OR PLASMA 3.3 10/02 Specimen Type: SERUM No comment entered. Ordering Provider: FRED NOYOLA Report Released Date/Time: Jul 13, 2023 09:13 AM Reporting Lab: [facility] [address] [facility] [address] Performing Lab: [facility] [address] [facility] [address] [place] LIPID PANEL FASTING CHOLESTERO L IN HDL [MASS/VOLU ME] IN SERUM OR PLASMA 68 mg/dL 40 - 60 10/02 H Specimen Type: SERUM No comment entered. Ordering Provider: FRED NOYOLA Report Released Date/Time: Jul 13, 2023 09:13 AM Reporting Lab: [facility] [address] [address] Performing Lab: [facility] [address] [facility] [address] [place] BASIC METABOLI C PANEL (fasting ) UREA NITROGEN [MASS/VOLU ME] IN SERUM OR PLASMA 14 mg/dL 7 - 25 10/02 Specimen Type: SERUM No comment entered. Ordering Provider: FRED NOYOLA Report Released Date/Time: Jul 13, 2023 09:13 AM Reporting Lab: [facility] [address] [address] Performing Lab: [facility] [address] [facility] [address] [place] BASIC METABOLI C PANEL (fasting ) GLUCOSE [MASS/VOLU ME] IN SERUM OR PLASMA 92 mg/dL 65 - 100 10/02 Specimen Type: SERUM No comment entered. Ordering Provider: FRED NOYOLA Report Released Date/Time: Jul 13, 2023 09:13 AM Reporting Lab: [facility] [address] [address] Performing Lab: [facility] [address] [place] BASIC METABOLI C PANEL (fasting ) SODIUM [MOLES/VOL UME] IN SERUM OR PLASMA 141 mmol/L 135 - 145 10/02 Specimen Type: SERUM No comment entered. Ordering Provider: FRED NOYOLA Report Released Date/Time: Jul 13, 2023 09:13 AM Reporting Lab: [facility] [address] [facility] [address] Performing Lab: [facility] [address] [facility] [address] [place] BASIC METABOLI C PANEL (fasting ) POTASSIUM [MOLES/VOL UME] IN SERUM OR PLASMA 4.7 mmol/L 3.5 - 5.0 10/02 Specimen Type: SERUM No comment entered. Ordering Provider: FRED NOYOLA Report Released Date/Time: Jul 13, 2023 09:13 AM Reporting Lab: [facility]ITALTRN [facility] [address] [facility] [address] Performing Lab: [facility] [address] [facility] [address] [place] BASIC METABOLI C PANEL (fasting ) CHLORIDE [MOLES/VOL UME] IN SERUM OR PLASMA 108 mmol/L 100 - 110 10/02 Specimen Type: SERUM No comment entered. Ordering Provider: FRED NOYOLA Report Released Date/Time: Jul 13, 2023 09:13 AM Reporting Lab: [facility] [address] [facility] [address] Performing Lab: [facility] [address] [facility] [address] [place] BASIC METABOLI C PANEL (fasting ) CARBON DIOXIDE, TOTAL [MOLES/VOL UME] IN SERUM OR PLASMA 23 meq/L 20 - 30 10/02 Specimen Type: SERUM No comment entered. Ordering Provider: FRED NOYOLA Report Released Date/Time: Jul 13, 2023 09:13 AM Reporting Lab: [facility] [address] [address] Performing Lab: [facility] [place] [facility] [address] [facility] [address] [place] BASIC METABOLI C PANEL (fasting ) CREATININE [MASS/VOLU ME] IN SERUM OR PLASMA 0.81 mg/dL 0.50 - 1.40 10/02 Specimen Type: SERUM No comment entered. Ordering Provider: FRED NOYOLA Report Released Date/Time: Jul 13, 2023 09:13 AM Reporting Lab: [facility] [place] [facility] [address] [facility] [address] Performing Lab: [facility] [address] [address] [place] BASIC METABOLI C PANEL (fasting ) GLOMERULAR FILTRATION RATE/1.73 SQ M.PREDICTE D [VOLUME RATE/AREA] IN SERUM, PLASMA OR BLOOD BY CREATININE -BASED FORMULA (CKD-EPI 2020) >90mL/mi n 60 10/02 Specimen Type: SERUM No comment entered. Ordering Provider: FRED NOYOLA Report Released Date/Time: Jul 13, 2023 09:13 AM Reporting Lab: [facility] [address] [facility] [address] Performing Lab: [facility] [address] [address] [place] LIVER FUNCTION PROTEIN [MASS/VOLU ME] IN SERUM OR PLASMA 6.8 g/dL 6.0 - 8.3 10/02 Specimen Type: SERUM No comment entered. Ordering Provider: FRED NOYOLA Report Released Date/Time: Jul 13, 2023 09:13 AM Reporting Lab: [facility] [address] Performing Lab: [facility] [address] [address] [place] LIVER FUNCTION ALBUMIN [MASS/VOLU ME] IN SERUM OR PLASMA 3.7 g/dL 3.5 - 5.0 10/02 Specimen Type: SERUM No comment entered. Ordering Provider: FRED NOYOLA Report Released Date/Time: Jul 13, 2023 09:13 AM Reporting Lab: [facility] [place] [facility] [address] [facility] [address] Performing Lab: [facility] [place] [address] [address] [place] LIVER FUNCTION ALKALINE PHOSPHATAS E [ENZYMATIC ACTIVITY/V OLUME] IN SERUM OR PLASMA 53 U/L 40 - 150 10/02 Specimen Type: SERUM No comment entered. Ordering Provider: FRED NOYOLA Report Released Date/Time: Jul 13, 2023 09:13 AM Reporting Lab: [facility] [place] [facility] [address] [facility] [address] Performing Lab: [facility]N [place] [address] [address] [place] LIVER FUNCTION ASPARTATE AMINOTRANS FERASE [ENZYMATIC ACTIVITY/V OLUME] IN SERUM OR PLASMA 13 U/L 5 - 34 10/02 Specimen Type: SERUM No comment entered. Ordering Provider: FRED NOYOLA Report Released Date/Time: Jul 13, 2023 09:13 AM Reporting Lab: [facility] [place] [address] [address] Performing Lab: [place] [facility] [place] [address] [address] [facility] LIVER FUNCTION ALANINE AMINOTRANS FERASE [ENZYMATIC ACTIVITY/V OLUME] IN SERUM OR PLASMA 15 U/L 10/02 Specimen Type: SERUM No comment entered. Ordering Provider: FRED NOYOLA Report Released Date/Time: Jul 13, 2023 09:13 AM Reporting Lab: [facility] [place] [address] [address] Performing Lab: [facility]ITALTRN [facility] [address] [address] [facility] LIVER FUNCTION BILIRUBIN. TOTAL [MASS/VOLU ME] IN SERUM OR PLASMA 0.9 mg/dL 0.2 - 1.2 10/02 Specimen Type: SERUM No comment entered. Ordering Provider: FRED NOYOLA Report Released Date/Time: Jul 13, 2023 09:13 AM Reporting Lab: [facility] [address] [address] Performing Lab: [facility] [address] [address] [place] HEMOGLOB IN A1C PANEL HEMOGLOBIN A1C/HEMOGL OBIN.TOTAL IN BLOOD BY HPLC 5.5 4.0 - 5.6 10/02 Specimen Type: BLOOD Comment: Values obtained from A1C measurement s can vary. For atypical A1C assays, a reported value of 7.0 could actually be between 6.72 and 7.28 if measured by a reference method. A reported value of 9.0 could actually be between 8.73 and 9.27. Ref: http://www. ngsp.org/[place] Pdata.asp Ordering Provider: FRED NOYOLA Report Released Date/Time: Jul 13, 2023 09:13 AM Reporting Lab: [facility] [address] [address] Performing Lab: [address] [address] [place] TSH THYROTROPI N [UNITS/VOL UME] IN SERUM OR PLASMA 1.84 u[IU]/mL 0.35 - 5.00 10/02 Specimen Type: SERUM No comment entered. Ordering Provider: FRED NOYOLA Report Released Date/Time: Jul 13, 2023 09:13 AM Reporting Lab: [facility] [address] [address] Performing Lab: [facility] [address] [address] [place] CBC AND DIFF (AUTO) LEUKOCYTES [#/VOLUME] IN BLOOD BY AUTOMATED COUNT 6.76 10*3/uL 4.50 - 11.00 10/02 Specimen Type: BLOOD No comment entered. Ordering Provider: FRED NOYOLA Report Released Date/Time: Jul 13, 2023 09:13 AM Reporting Lab: [facility] [address] [address] Performing Lab: [facility] [address] [address] [place] CBC AND DIFF (AUTO) ERYTHROCYT ES [#/VOLUME] IN BLOOD BY AUTOMATED COUNT 4.98 10*6/uL 4.23 - 5.66 10/02 Specimen Type: BLOOD No comment entered. Ordering Provider: FRED NOYOLA Report Released Date/Time: Jul 13, 2023 09:13 AM Reporting Lab: [facility] [place] [facility] [address] [facility] [address] Performing Lab: [facility] [place] [facility] [address] [facility] [address] [place] CBC AND DIFF (AUTO) HEMOGLOBIN [MASS/VOLU ME] IN BLOOD 13.7 g/dL 12.8 - 17 10/02 Specimen Type: BLOOD No comment entered. Ordering Provider: FRED NOYOLA Report Released Date/Time: Jul 13, 2023 09:13 AM Reporting Lab: [facility] [place] [address] [address] Performing Lab: [facility] [place] [facility] [address] [facility] [address] [place] CBC AND DIFF (AUTO) HEMATOCRIT [VOLUME FRACTION] OF BLOOD BY AUTOMATED COUNT 42.2 39.2 - 50.4 10/02 Specimen Type: BLOOD No comment entered. Ordering Provider: FRED NOYOLA Report Released Date/Time: Jul 13, 2023 09:13 AM Reporting Lab: [facility] [place] [facility] [address] [facility] [address] Performing Lab: [facility] [place] [facility] [address] [facility] [address] [place] CBC AND DIFF (AUTO) MCV [ENTITIC VOLUME] BY AUTOMATED COUNT 84.7 fL 82 - 99 10/02 Specimen Type: BLOOD No comment entered. Ordering Provider: FRED NOYOLA Report Released Date/Time: Jul 13, 2023 09:13 AM Reporting Lab: [facility] [place] [address] [address] Performing Lab: [facility] [place] [address] [address] [place] CBC AND DIFF (AUTO) MCHC [MASS/VOLU ME] BY AUTOMATED COUNT 32.5 g/dL 30.8 - 35.1 10/02 Specimen Type: BLOOD No comment entered. Ordering Provider: FRED NOYOLA Report Released Date/Time: Jul 13, 2023 09:13 AM Reporting Lab: [facility] [address] [address] Performing Lab: [facility] [address] [address] [place] CBC AND DIFF (AUTO) PLATELETS [#/VOLUME] IN BLOOD BY AUTOMATED COUNT 175 10*3/uL 140 - 360 10/02 Specimen Type: BLOOD No comment entered. Ordering Provider: FRED NOYOLA Report Released Date/Time: Jul 13, 2023 09:13 AM Reporting Lab: [facility] [place] [address] [address] Performing Lab: [facility] [place] [address] [address] [place] CBC AND DIFF (AUTO) ERYTHROCYT E DISTRIBUTI ON WIDTH [RATIO] BY AUTOMATED COUNT 16.1 12.0 - 16.0 10/02 H Specimen Type: BLOOD No comment entered. Ordering Provider: FRED NOYOLA Report Released Date/Time: Jul 13, 2023 09:13 AM Reporting Lab: [facility] [place] [address] [address] Performing Lab: [facility] [place] [address] [address] [place] CBC AND DIFF (AUTO) MONOCYTES [#/VOLUME] IN BLOOD BY AUTOMATED COUNT 0.47 10*3/uL 0.30 - 1.10 10/02 Specimen Type: BLOOD No comment entered. Ordering Provider: FRED NOYOLA Report Released Date/Time: Jul 13, 2023 09:13 AM Reporting Lab: [facility] [place] [address] [address] Performing Lab: [facility] [place] [facility] [address] [facility] [address] [place] CBC AND DIFF (AUTO) MCH [ENTITIC MASS] BY AUTOMATED COUNT 27.5 pg 26.2 - 32.6 10/02 Specimen Type: BLOOD No comment entered. Ordering Provider: FRED NOYOLA Report Released Date/Time: Jul 13, 2023 09:13 AM Reporting Lab: [facility] [place] [facility] [address] [facility] [address] Performing Lab: [facility] [place] [address] [address] [place] CBC AND DIFF (AUTO) NEUTROPHIL S/100 LEUKOCYTES IN BLOOD BY AUTOMATED COUNT 44.9 43.7 - 75.8 10/02 Specimen Type: BLOOD No comment entered. Ordering Provider: FRED NOYOLA Report Released Date/Time: Jul 13, 2023 09:13 AM Reporting Lab: [facility] [place] [address] [address] Performing Lab: [facility] [place] [address] [address] [place] CBC AND DIFF (AUTO) LYMPHOCYTE S/100 LEUKOCYTES IN BLOOD BY AUTOMATED COUNT 38.0 14.0 - 42.3 10/02 Specimen Type: BLOOD No comment entered. Ordering Provider: FRED NOYOLA Report Released Date/Time: Jul 13, 2023 09:13 AM Reporting Lab: [facility] [place] [address] [address] Performing Lab: [facility] [place] [address] [address] [place] CBC AND DIFF (AUTO) MONOCYTES/ 100 LEUKOCYTES IN BLOOD BY AUTOMATED COUNT 7.0 5.1 - 13.7 10/02 Specimen Type: BLOOD No comment entered. Ordering Provider: FRED NOYOLA Report Released Date/Time: Jul 13, 2023 09:13 AM Reporting Lab: [facility] [place] [address] [address] Performing Lab: [facility] [address] [address] [place] CBC AND DIFF (AUTO) EOSINOPHIL S/100 LEUKOCYTES IN BLOOD BY AUTOMATED COUNT 8.9 0.4 - 6.8 10/02 H Specimen Type: BLOOD No comment entered. Ordering Provider: FRED NOYOLA Report Released Date/Time: Jul 13, 2023 09:13 AM Reporting Lab: [facility] [address] [address] Performing Lab: [place] [facility] [address] [address] [place] CBC AND DIFF (AUTO) BASOPHILS/ 100 LEUKOCYTES IN BLOOD BY AUTOMATED COUNT 0.9 0.1 - 2.0 10/02 Specimen Type: BLOOD No comment entered. Ordering Provider: FRED NOYOLA Report Released Date/Time: Jul 13, 2023 09:13 AM Reporting Lab: [facility] [address] [address] Performing Lab: [facility] [address] [address] [place] CBC AND DIFF (AUTO) NEUTROPHIL S [#/VOLUME] IN BLOOD BY AUTOMATED COUNT 3.04 10*3/uL 2.20 - 7.60 10/02 Specimen Type: BLOOD No comment entered. Ordering Provider: FRED NOYOLA Report Released Date/Time: Jul 13, 2023 09:13 AM Reporting Lab: [facility] [address] [address] Performing Lab: [facility] [address] [address] [place] CBC AND DIFF (AUTO) LYMPHOCYTE S [#/VOLUME] IN BLOOD BY AUTOMATED COUNT 2.57 10*3/uL 1.00 - 3.20 10/02 Specimen Type: BLOOD No comment entered. Ordering Provider: FRED NOYOLA Report Released Date/Time: Jul 13, 2023 09:13 AM Reporting Lab: [facility] [address] [address] Performing Lab: [facility] [address] [facility] [address] [place] CBC AND DIFF (AUTO) EOSINOPHIL S [#/VOLUME] IN BLOOD BY AUTOMATED COUNT 0.60 10*3/uL 0.03 - 0.44 10/02 H Specimen Type: BLOOD No comment entered. Ordering Provider: FRED NOYOLA Report Released Date/Time: Jul 13, 2023 09:13 AM Reporting Lab: [facility] [address] Performing Lab: [facility] [address] [place] CBC AND DIFF (AUTO) BASOPHILS [#/VOLUME] IN BLOOD BY AUTOMATED COUNT 0.06 10*3/uL 0.01 - 0.13 10/02 Specimen Type: BLOOD No comment entered. Ordering Provider: FRED NOYOLA Report Released Date/Time: Jul 13, 2023 09:13 AM Reporting Lab: [facility] [address] [address] Performing Lab: [facility]TR[facility] [address] [place] CBC AND DIFF (AUTO) IMMATURE GRANULOCYT ES/100 LEUKOCYTES IN BLOOD BY AUTOMATED COUNT 0.3 0.0 - 0.7 10/02 Specimen Type: BLOOD No comment entered. Ordering Provider: FRED NOYOLA Report Released Date/Time: Jul 13, 2023 09:13 AM Reporting Lab: [facility] [address] Performing Lab: [facility] [address] [place] CBC AND DIFF (AUTO) IMMATURE GRANULOCYT ES [#/VOLUME] IN BLOOD 0.02 10*3/uL 0.00 - 0.06 10/02 Specimen Type: BLOOD No comment entered. Ordering Provider: FRED NOYOLA Report Released Date/Time: Jul 13, 2023 09:13 AM Reporting Lab: [facility] [place] [address] [address] Performing Lab: [facility] [place] [address] [address] [place] CBC AND DIFF (AUTO) NRBC % 0.0 0.0 - 0.0 10/02 Specimen Type: BLOOD No comment entered. Ordering Provider: FRED NOYOLA Report Released Date/Time: Jul 13, 2023 09:13 AM Reporting Lab: [facility] [place] [address] [address] [facility] [address] [address] [place] CBC AND DIFF (AUTO) NRBC, ABS 0.00 10*3/uL 0.00 - 0.00 10/02 Specimen Type: BLOOD No comment entered. Ordering Provider: FRED NOYOLA Report Released Date/Time: Jul 13, 2023 09:13 AM Reporting Lab: [facility] [place] [address] [address] Performing Lab: [facility] [place] [address] [address] [place] URINALYS IS COLOR OF URINE Yellow 07/20 Specimen Type: URINE Comment: If Glucose = >500 and Ketones are positive, please alert the Physician. Ordering Provider: LISSETTE CORDOVA Report Released Date/Time: Jan 10, 2022 03:25 PM Reporting Lab[facility] [place] [address] [address] [facility]forming Lab[facility] [address] [address] [place] URINALYS IS APPEARANCE OF URINE Clear 07/20 Specimen Type: URINE Comment: If Glucose = >500 and Ketones are positive, please alert the Physician. Ordering Provider: LISSETTE CORDOVA Report Released Date/Time: Jan 10, 2022 03:25 PM Reporting Lab[facility] [address] [address] Performing Lab: [facility] [address] [address] [place] URINALYS IS GLUCOSE [MASS/VOLU ME] IN URINE NEGATIVE mg/dL 07/20 Specimen Type: URINE Comment: If Glucose = >500 and Ketones are positive, please alert the Physician. Ordering Provider: LISSETTE CORDOVA Report Released Date/Time: Jan 10, 2022 03:25 PM Reporting Lab: [address] [address] Performing Lab: [address] [address] [place] URINALYS IS KETONES [MASS/VOLU ME] IN URINE BY TEST STRIP NEGATIVE mg/dL 07/20 Specimen Type: URINE Comment: If Glucose = >500 and Ketones are positive, please alert the Physician. Ordering Provider: LISSETTE CORDOVA Report Released Date/Time: Jan 10, 2022 03:25 PM Reporting Lab: [address] [address] Performing Lab: [address] [address] [place] URINALYS IS ERYTHROCYT ES [PRESENCE] IN URINE SEDIMENT BY LIGHT MICROSCOPY NEGATIVE mg/dL 07/20 Specimen Type: URINE Comment: If Glucose = >500 and Ketones are positive, please alert the Physician. Ordering Provider: LISSETTE CORDOVA Report Released Date/Time: Jan 10, 2022 03:25 PM Reporting Lab: [address] [address] Performing Lab: [address] [address] [place] URINALYS IS PROTEIN [MASS/VOLU ME] IN URINE BY TEST STRIP NEGATIVE mg/dL 07/20 Specimen Type: URINE Comment: If Glucose = >500 and Ketones are positive, please alert the Physician. Ordering Provider: LISSETTE CORDOVA Report Released Date/Time: Jan 10, 2022 03:25 PM Reporting Lab: [address] [place] [address] Performing Lab: [address] [address] [place] URINALYS IS NITRITE [PRESENCE] IN URINE NEGATIVE mg/dL 07/20 Specimen Type: URINE Comment: If Glucose = >500 and Ketones are positive, please alert the Physician. Ordering Provider: LISSETTE CORDOVA Report Released Date/Time: Jan 10, 2022 03:25 PM Reporting Lab: [address] [address] Performing Lab: [address] [address] [place] URINALYS IS BILIRUBIN. TOTAL [PRESENCE] IN URINE NEGATIVE mg/dL 07/20 Specimen Type: URINE Comment: If Glucose = >500 and Ketones are positive, please alert the Physician. Ordering Provider: LISSETTE CORDOVA Report Released Date/Time: Jan 10, 2022 03:25 PM Reporting Lab: [address] [address] Performing Lab: [address] [address] [place] URINALYS IS SPECIFIC GRAVITY OF URINE BY REFRACTOME TRY 1.024 1.016 - 1.022 07/20 H Specimen Type: URINE Comment: If Glucose = >500 and Ketones are positive, please alert the Physician. Ordering Provider: LISSETTE CORDOVA Report Released Date/Time: Jan 10, 2022 03:25 PM Reporting Lab: [address] [address] Performing Lab: [address] [address] [place] URINALYS IS PH OF URINE BY TEST STRIP 6.5 5.0 - 9.0 07/20 Specimen Type: URINE Comment: If Glucose = >500 and Ketones are positive, please alert the Physician. Ordering Provider: LISSETTE CORDOVA Report Released Date/Time: Jan 10, 2022 03:25 PM Reporting Lab: [address] [address] Performing Lab: [address] [address] [place] URINALYS IS UROBILINOG EN [MASS/VOLU ME] IN URINE BY TEST STRIP <2.0mg/d L <2.0 - 2.0 07/20 Specimen Type: URINE Comment: If Glucose = >500 and Ketones are positive, please alert the Physician. Ordering Provider: LISSETTE CORDOVA Report Released Date/Time: Jan 10, 2022 03:25 PM Reporting Lab: [address] [address] Performing Lab: [address] [address] [place] URINALYS IS LEUKOCYTE ESTERASE [PRESENCE] IN URINE BY TEST STRIP NEGATIVE 07/20 Specimen Type: URINE Comment: If Glucose = >500 and Ketones are positive, please alert the Physician. Ordering Provider: LISSETTE CORDOVA Report Released Date/Time: Jan 10, 2022 03:25 PM Reporting Lab: [address] [address] Performing Lab: [address] [address] [place] PSA PROSTATE SPECIFIC AG [MASS/VOLU ME] IN SERUM OR PLASMA < 0.10ng/m L 0.00 - 4.00 07/19 Specimen Type: SERUM No comment entered. Ordering Provider: LISSETTE CORDOVA Report Released Date/Time: Jan 10, 2022 03:25 PM Reporting Lab: [address] [address] Performing Lab: [address] [address] [place] BASIC METABOLI C PANEL (fasting ) UREA NITROGEN [MASS/VOLU ME] IN SERUM OR PLASMA 14 mg/dL 7 - 25 07/19 Specimen Type: SERUM No comment entered. Ordering Provider: LISSETTE CORDOVA Report Released Date/Time: Jan 10, 2022 03:25 PM Reporting Lab: [address] [address] Performing Lab: [address] [address] [place] BASIC METABOLI C PANEL (fasting ) GLUCOSE [MASS/VOLU ME] IN SERUM OR PLASMA 106 mg/dL 65 - 100 07/19 H Specimen Type: SERUM No comment entered. Ordering Provider: LISSETTE CORDOVA Report Released Date/Time: Jan 10, 2022 03:25 PM Reporting Lab: [address] [address] Performing Lab: [address] [address] [place] BASIC METABOLI C PANEL (fasting ) SODIUM [MOLES/VOL UME] IN SERUM OR PLASMA 141 mmol/L 135 - 145 07/19 Specimen Type: SERUM No comment entered. Ordering Provider: LISSETTE CORDOVA Report Released Date/Time: Jan 10, 2022 03:25 PM Reporting Lab: [address] [address] Performing Lab: [address] [address] [place] BASIC METABOLI C PANEL (fasting ) POTASSIUM [MOLES/VOL UME] IN SERUM OR PLASMA 4.2 mmol/L 3.5 - 5.0 07/19 Specimen Type: SERUM No comment entered. Ordering Provider: LISSETTE CORDOVA Report Released Date/Time: Jan 10, 2022 03:25 PM Reporting Lab: [address] [address] Performing Lab: [address] [address] [place] BASIC METABOLI C PANEL (fasting ) CHLORIDE [MOLES/VOL UME] IN SERUM OR PLASMA 107 mmol/L 100 - 110 07/19 Specimen Type: SERUM No comment entered. Ordering Provider: LISSETTE CORDOVA Report Released Date/Time: Jan 10, 2022 03:25 PM Reporting [facility]: [facility] [address] [address] Performing Lab: [facility] [address] [address] [place] BASIC METABOLI C PANEL (fasting ) CARBON DIOXIDE, TOTAL [MOLES/VOL UME] IN SERUM OR PLASMA 25 meq/L 20 - 30 07/19 Specimen Type: SERUM No comment entered. Ordering Provider: LISSETTE CORDOVA Report Released Date/Time: Jan 10, 2022 03:25 PM Reporting Lab: [address] [address] Performing [facility]: [facility] [address] [address] [place] BASIC METABOLI C PANEL (fasting ) CREATININE [MASS/VOLU ME] IN SERUM OR PLASMA 0.77 mg/dL 0.50 - 1.40 07/19 Specimen Type: SERUM No comment entered. Ordering Provider: LISSETTE CORDOVA Report Released Date/Time: Jan 10, 2022 03:25 PM Reporting Lab: [address] [address] Performing Lab: [facility] [address] [address] [place] BASIC METABOLI C PANEL (fasting ) GLOMERULAR FILTRATION RATE/1.73 SQ M.PREDICTE D [VOLUME RATE/AREA] IN SERUM, PLASMA OR BLOOD BY CREATININE -BASED FORMULA (CKD-EPI) >90mL/mi n 60 07/19 Specimen Type: SERUM No comment entered. Ordering Provider: LISSETTE CORDOVA Report Released Date/Time: Jan 10, 2022 03:25 PM Reporting Lab: [facility] [address] [address] Performing Lab: [address] [address] [place] LIPID PANEL FASTING CHOLESTERO L [MASS/VOLU ME] IN SERUM OR PLASMA 239 mg/dL 7 - 199 07/19 H Specimen Type: SERUM No comment entered. Ordering Provider: LISSETTE CORDOVA Report Released Date/Time: Jan 10, 2022 03:25 PM Reporting Lab: [facility] [address] [address] Performing Lab: [address] [address] [place] LIPID PANEL FASTING TRIGLYCERI DE [MASS/VOLU ME] IN SERUM OR PLASMA 80 mg/dL 0 - 150 07/19 Specimen Type: SERUM No comment entered. Ordering Provider: LISSETTE CORDOVA Report Released Date/Time: Jan 10, 2022 03:25 PM Reporting Lab: [address] [address] Performing Lab: [address] [address] [place] LIPID PANEL FASTING CHOLESTERO L IN LDL [MASS/VOLU ME] IN SERUM OR PLASMA BY CALCSVEN N 161 mg/dL 0 - 129 07/19 H Specimen Type: SERUM No comment entered. Ordering Provider: LISSETTE CORDOVA Report Released Date/Time: Jan 10, 2022 03:25 PM Reporting Lab: [address] [address] Performing Lab: [address] [address] [place] LIPID PANEL FASTING CHOLESTERO L.TOTAL/CH OLESTEROL IN HDL [MASS RATIO] IN SERUM OR PLASMA 3.9 07/19 Specimen Type: SERUM No comment entered. Ordering Provider: LISSETTE CORDOVA Report Released Date/Time: Jan 10, 2022 03:25 PM Reporting Lab: [facility] [address] [address] Performing [facility]: [facility] [address] [address] [place] LIPID PANEL FASTING CHOLESTERO L IN HDL [MASS/VOLU ME] IN SERUM OR PLASMA 62 mg/dL 40 - 60 07/19 H Specimen Type: SERUM No comment entered. Ordering Provider: LISSETTE CORDOVA Report Released Date/Time: Jan 10, 2022 03:25 PM Reporting Lab: [place] [facility] [address] [facility] [address] Performing Lab: [place] [facility] [facility] [address] [facility] [address] [facility] Vital Signs Combined list of inpatient and outpatient Vital Signs from Department of [facility] and [facility], ranging from 12 months to all on record, depending upon the facility. Vital Sign Value Date Comments Source SYSTOLIC BLOOD PRESSURE 124 10/10/2023 14:36:46 [facility] DIASTOLIC BLOOD PRESSURE 71 10/10/2023 14:36:46 [facility] PULSE OXIMETRY 97 10/10/2023 14:36:46 S IVA WEIGHT 177 10/10/2023 14:36:46 [facility] BMI 29 kg/m2 10/10/2023 14:36:46 [facility] 10/10/2023 14:36:46 [facility] Encounters Combined list of: 1) Encounters from Department of [facility] Affairs facilities going backup to the last 18 months, not all [place] inpatient encounters are included; 2) Encounters from the Department of [facility] facilities going backup to 280 months. Location Location Details Encounter Type Encounter Number Reason For Visit Attending Provider ADM Date DC Date Status Disposition Source [facility] OFFICE O/P EST MOD 30-39 MIN [id number] Diagnos is: ICD-10- CM E78.00 Pure hyperch olester olemia, unspeci fied STELEA,CAR [facility] [place] [facility] [facility] Outpatient Encounter [id number] 02[facility]15 [facility] [facility] [place] [facility] Outpatient Encounter [id number] 03/13 [facility] [place] [facility] OFF/OP EST MAY X REQ PHY/QHP [id number] Diagnos is: ICD-10- CM M25.531 Pain in right wrist MARYJO,ER IC K 04/04 [place] [facility] En[facility] [id number] 04/04 [facility] En[facility] [id number] 04/04 [facility] OFFICE O/P EST MOD 30 MIN [id number] Diagnos is: ICD-10- CM M79.631 Pain in right forearm MISSY NOYOLA F 04/05 [place] [facility] En[facility] [id number] 04/06 [facility] [id number] 04/06 [facility] En[facility] [id number] 04/07 [facility] En[facility] [id number] 04/07 [facility] En[facility] [id number] 04/10 [facility] En[facility] [id number] 04/11 [facility] [id number] 04[facility]11 [facility] [id number] 04/11 [facility] En[facility] [id number] 04/11 [facility] [id number] 04[facility]11 [facility] [id number] 04/12 [facility] En[facility] [id number] 04/13 [facility] En[facility] [id number] 04/18 [facility] En[facility] [id number] 04/26 [facility] [id number] 05/04 [facility] [id number] 06/20 [facility] En[facility] [id number] 07/23 [facility] [id number] 08/06 [facility] En[facility] [id number] 09/03 [facility] En[facility] [id number] 09/03 [facility] [id number] 09/03 [facility] En[facility] [id number] 10/02 [facility] En[facility] [id number] 10/09 [facility] [place] [facility] OFFICE O/P EST MOD 30 MIN [id number] Diagnos is: ICD-10- CM E78.00 Pure hyperch olester olemia, unspeci fied STELEA,CAR MEN F 10/09 [place] [facility] Encounter [id number] 10/31 [facility] En[facility] [id number] 11/23 [facility] En[facility] [id number] 12/18 [facility] En[facility] [id number] 01/14 [facility] En[facility] [id number] 02/25 [facility] Outpatient Encounter [id number] 04/16 [facility] [place] [facility] [place] [facility] Outpatient Encounter [id number] 06/12 [place] [facility] [place] [facility] Social History Combined list of available smoking, tobacco, and other social history from Department of Defense and Veterans Affairs facilities. Social History Type Response Date Comment Sourc e Tobacco smoking status LAIS VA-TOBACCO NEVER USED 01/10/2023 [facility] D History of tobacco use VA-TOBACCO NEVER USED 01/10/2022 [facility] D History of tobacco use VA-TOBACCO NEVER USED 12/16/2020 [place] [facility] [place] [facility] History of tobacco use VA-TOBACCO NEVER USED 01/11/2018 [facility] History of tobacco use LIFETIME NON-TOBACCO USER 12/26/2016 [facility] History of tobacco use LIFETIME NON-TOBACCO USER 03/12/2015 [facility] Plan of Care List of future care activities from [facility] facilities. Additional future care activities may be listed in the Assessment and Plan section. Date/Time Care Activity Care Activity Detail Facili ty 06/11/2024 Laboratory - [facility] Worker ry Order BASIC METABOLIC PANEL (fasting) BLOOD (SST-SERUM) SP [place] [facility] [place] [facility]
== END 2024-07-02 08:40 | disposition home or self-care (01) ==
LOC: HO.HPS 08:15
PROVIDERS: PCP Internal Medicine; Visit Provider Hospitalist
DX: R91.8 Other nonspecific abnormal finding of lung field (principal); C34.31 Malignant neoplasm of lower lobe, right bronchus or lung
CPT/HCPCS: 99214

== ENCOUNTER → 2024-07-02 08:15 | Outpatient (BNVA) | payer OTHER, SELFPAY | PROVIDERS: PCP Internal Medicine; Visit Provider Hospitalist | DX: C34.31 Malignant neoplasm of lower lobe, right bronchus or lung (principal); R91.8 Other nonspecific abnormal finding of lung field | CPT/HCPCS: 99212 ==

== ENCOUNTER 2025-01-02 07:55 | Outpatient (AMB) | payer OTHER, SELFPAY ==
[2025-01-02 08:17] VITALS: BP 130/60; PULSE 70; O2SAT 98; BMI 31.5
--- NOTE | 2025-01-02 08:17 | A.OFFVIS_ITS ---
Vital Signs 01/02/25 08:17 Height 5 ft 6 in Weight 195 lb 1.745 oz BMI 31.5 BP 130/60 Blood Pressure Location Lt brachial Position Sitting Pulse 70 Pulse Source Pulse Oximeter Pulse Oximetry (%) 98 Oxygen Delivery Method Room Air Intake Visit Reasons: Pulmonary nodules Platinum Smith Required: No Accompanied by: Self / Same As Patient Allergies beet Allergy (Intermediate, Verified 01/02/25 08:21) Vomiting procaine (From Novocain) Adverse Reaction (Intermediate, Verified 01/02/25 08:21) has no effect HPI Comments Details: The patient is a 69-year-old gentleman nonsmoker will was in the [place] was found to have pulmonary nodules. The patient states many years ago he developed shortness of breath he had called EMS he was taken to [facility] where he had a chest x-ray he was told yet ?lung cancer?. He then followed up with his primary care doctor who told him use just nodules. After that [facility]. The patient apparently had a CT scan of the chest back in September 2021 and again in March 2022. I will was not able to look at those films but it was noted the patient had multiple pulmonary nodules bilaterally largest 1 in the right lower lobe measuring 10 mm in size. Apparently had not changed in size when compared to that interim. He did have a recent CT scan which I personally reviewed. He did bring the CD although, I do not have the formal read as of yet. I did personally reviewed and demonstrated that he had numerous pulmonary nodules but are relatively well-circumscribed. The right lower lobe 10 mm pulmonary nodule appears to be more concerning as it is spiculated and irregular in size in features. Therefore this nodule becomes more concerning because of his appearance. Explained to the patient that if there is any evidence of any change in this nodule that issue be intervened that. We did talk about a PET scan versus a surgical resection. But, we will wait for the final read of the latest CT chest and he will provide me with the old CT chest scan(s). 12/21/2022 the patient is here for a pulmonary follow-up visit. The patient overall has been doing fairly well though nervous about his all pulmonary issue. Denies any significant cough or shortness of breath. He denies any night sweats or weight loss. He currently is not using any inhalers. We did review his recent PET scan that he had at [facility]. The patient does have multiple pulmonary nodules but 1 nodule in the right lower lobe were it measures about a cm and appears to be spiculated. That nodule on the PET scan did not light up was not PET avid. Explained to the patient that this is reassuring although it is not a definitive results. The patient understands the still a chance that this could be a smoldering slow-moving cancer were may not light up on the PET scan as much. The patient also has other pulmonary nodules that are too small for the accuracy of PET. Therefore will have to continue following does nodules. Under respiratory exam the patient does have a prolonged expiratory phase and some coarse breath sounds with some rhonchi. I did offer him a short-acting beta agonist with the patient at this point would like to hold off on any inhalers. He will monitor his symptoms. If his symptoms worsen he can always call and I can send him a prescription. Otherwise will follow-up in 6 months after he is repeat CT scan of the chest. 06/21/2023 the patient is here for a pulmonary follow-up visit. He underwent surgery for his pulmonary nodule back in April. He had a right lower lobe resection. The patient did have a positive lesion consistent with adenocarcinoma. Stage I. Very small nodule the surgery was with curative intent. Postoperatively he did have some atelectasis at the right base. He was coughing afterwards. He was congested. Moderate severity. He was getting exhausted. Although he is feeling better at this time. I do believe a rescue inhaler will be helpful. The patient should be getting CT scans now every 6 months. He will get the CT scans to the [facility]. he does have diminished breath sounds I do believe a rescue inhaler will be helpful specially if he is coughing to give him some relief. He is going to start exercising more. I did give him an online pulmonary rehabilitation website that he can look into specially since he is still working. Will follow-up in [address] scan. 11/01/2023 the patient is here for a pulmonary follow-up visit. Apparently since we last spoke he did undergo CT chest at the [facility]. it was found to be abnormal therefore the report was sent over. We did request the images. I did personally review the images with him. The patient is concerned about the reading. Explained to patient that he is status post surgery so therefore there will be some postoperative changes. He does have a small loculated pleural effusion which is typical after surgery. He also has some areas of scarring that have a nodular appearance. He also has other pulmonary nodules noted. We did start him on some antibiotics is in cases developing a lower respiratory infection or ?walking pneumonia ?. He is tolerating the Augmentin. I will present him at conference and review the images with thoracic surgery. Will plan to repeat the CT scan in 2-3 months to see if there is an interval progression of disease. But at this point I would not intervene on the findings based on his recent surgery and does postoperative changes are expected. 01/15/2024 the patient is here for pulmonary follow-up visit. The patient overall is doing well. Denies any respiratory complaints. Denies any chest pains or shortness breath. He has been trying to exercise regularly. He did have a repeat CT scan of the chest to follow-up the abnormal findings. It appears that his pleural effusion has improved in the airspace disease also improved. He has multiple pulmonary nodules noted however. Will await the final read on the CT scans so they can compare his pulmonary nodules that he has had before. The pulmonary nodules that did personally review them although I could not compare them and they are smooth border and they appeared to be about similar size of the ones that are being described. Therefore, will plan to repeat the CT scan in 6 months. 07/02/2024 the patient is here for a pulmonary follow-up visit. Overall he is doing well. His last CT scan was back in December demonstrating a 6.7 cm semisolid nodule. Indeed is concerning nodule. The patient's last CT scan again was in December 2023. [facility]. His next CAT scan should been back in April. Based on the fact the patient did have lung cancer resected back in April 2023 he needs to continue with CAT scans every 6 months for least 2-3 years and then he can go to yearly follow-up for least 5 years. Still though with this concerning nodule it may change the follow-up in the required interventions. Therefore, I did call to the [facility] to make sure that they are aware that his CAT scan is delayed and we do not want a delay his medical care. At this point the patient continue to exercise regularly. I did offer him rescue inhaler the patient denied at this time that he needed 1. He will call if this changes. In the meantime if [facility] in the next couple weeks he can always call and I will order a CAT scan through our system. 01/02/2025 the patient is here for pulmonary follow-up visit. He does complaint of dyspnea on exertion. [id number] severity. We even with minimal activity. He is wondering about a placard. His last PFTs his FEV1 was prior to surgery. Will going to go have to repeat the PFTs to be able to apply for placard. In the meantime he denies any weight loss or night sweats. Appetite has been good. The patient did have a recent CT scan in November 2024 at the [facility] which I personally reviewed with the [employer] optical drive. The pulmonary nodules appeared to be stable. He still has 1 nodule in the right hemithorax close to his surgical lying which is being monitor closely. The other nodules appear to be smooth border. Will plan to repeat the CAT Jadyn Dillard 6 months which would be a completion of 2 years after his initial diagnosis. If the nodule continued to be stable after 2 years we can talk about possibly changing his CAT scans to a yearly basis if the nodules continue to be stable and unchanged. He did try to inhalers in the past he did not see any significant improvement. Right now his respiratory exam is pretty benign. He does have a rescue inhaler he can use as needed. [facility] Medical History (Updated 11/03/23 @ 08:29 by Lovely Bonilla PA-C) Lung cancer Testicular cancer Elevated cholesterol Pre-diabetes RBBB (right bundle branch block) Dyslexia and alexia DJD (degenerative joint disease) Right wrist fracture Surgical History (Updated 11/02/23 @ 15:33 by Lovely Bonilla PA-C) History of lobectomy of lung History of bilateral orchiectomies History of left inguinal hernia repair History of nasal septoplasty History of colonoscopy Social History Household Members: Family Housing: Apartment Are you a primary hospice spiritual care coordinator to a significant other at home: No Do you presently have visiting nurse or other home services: No Alcohol intake: current Alcohol intake frequency: holidays/special occasions only Alcohol type: beer Comment: COUNTS CORRECT Patient Tobacco Use Status: Never used Tobacco service: Yes Review of Systems Const Denies fatigue and Denies fever(s) Eyes Denies blurry vision ENT Denies nasal congestion Card Denies chest pain Resp Reports cough and Denies wheezing GI Reports no additional complaints Musc Reports no additional complaints Skin/Breast Denies rash Neuro Reports no additional complaints Endo Denies fatigue Jason/Lymph Denies lymphadenopathy Aller/Immun Denies wheezing Physical Exam Vital Signs: Last Vital Signs Pulse 70 01/02/25 08:17 BP 130/60 01/02/25 08:17 Pulse Ox 98 01/02/25 08:17 Oxygen Delivery Method Room Air 01/02/25 08:17 BMI result Body Mass Index 31.5 Const General: comfortable HEENT Head: Yes atraumatic Neck Neck: Yes supple Chest Chest palpation & inspection: normal inspection of the chest Breast/axilla inspection: normal inspection of the breasts Resp Effort & Inspection: normal respiratory effort and No prolonged expiratory phase Auscultation: no rales, no rhonchi and diminished lung sounds Cardio Rate: regular rate Rhythm: regular rhythm Heart sounds: S1 normal heart sound present and S2 normal heart sound present GI Palpation (GI): Soft to palpation Skin General skin exam: no rashes or lesions noted Extrem General: Yes no clubbing, cyanosis or edema Assessment & Plan Assessment & Plan (1) Pulmonary nodules: Code(s): R91.8 - Other nonspecific abnormal finding of lung field Category: Medical (2) Lung cancer: Comment: (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) Code(s): C34.90 - Malignant neoplasm of unspecified part of unspecified bronchus or lung Category: Medical Qualifiers: Laterality: right Lung location: lower lobe of lung Qualified Code(s): C34.31 - Malignant neoplasm of lower lobe, right bronchus or lung (3) S/P lobectomy of lung: Comment: bronchoscopy, vats right lower lobe wedge resection followed by VATS right lower lobectomy, mediastinal lymph node sampling, intercostal nerve block 05/04/23 Code(s): Z90.2 - Acquired absence of lung [part of] Category: Surgical Plan consider PADMINI CT chest in 6 months ([facility]) or 2 years, then every yr after that for a total of 5 years or based on any new nodule(s). Next CT chest 05/2025 On line pulmonary rehab PFTs F/U 6 months Orders: Orders PFT pulmonary function test Today C34.31 - Malignant neoplasm of lower lobe, right bronchus or lung, R91.8 - Other nonspecific abnormal finding of lung field, Z90.2 - Acquired absence of lung [part of] Coding Level of Care Code Est Pt Level 4 (53950) Complex EM visit Add On G2211 Diagnoses Pulmonary nodules R91.8 Malignant neoplasm of lower lobe of right lung C34.31 Laterality: right Lung location: lower lobe of lung S/P lobectomy of lung Z90.2 Time Spent (min) 17
== END 2025-01-02 16:18 | disposition home or self-care (01) ==
PROVIDERS: PCP Internal Medicine; Visit Provider Hospitalist
DX: R91.8 Other nonspecific abnormal finding of lung field (principal); C34.31 Malignant neoplasm of lower lobe, right bronchus or lung; Z90.2 Acquired absence of lung [part of]
CPT/HCPCS: 99214; G2211

== ENCOUNTER → 2025-01-02 07:55 | Outpatient (BNVA) | payer OTHER, SELFPAY | PROVIDERS: PCP Internal Medicine; Visit Provider Hospitalist | DX: R91.8 Other nonspecific abnormal finding of lung field (principal); C34.31 Malignant neoplasm of lower lobe, right bronchus or lung; Z90.2 Acquired absence of lung [part of] | CPT/HCPCS: 99212 ==

== ENCOUNTER 2025-03-25 08:19 | Outpatient (REF) | payer OTHER, SELFPAY ==
--- NOTE | 2025-03-25 08:54 | PFT_ITS ---
Spirometry [] Lung Volumes [] Diffusion Capacity [] Methacholine Challenge [] Flow Volume Loops [] MVV [] MIP/MEP(Max inspiratory pressure/Max expiratory pressure) [] 6 Minute Walk Test [] ABG [] Interpretation [] MTDD
[2025-03-25 09:33] VITALS: PULSE 65
--- OUTSIDE RECORDS SUMMARY | 2025-03-25 09:56 | XMS_ITS | Clinical Summary ---
Author Organization [facility] Address [address] [place] [address] Care Team Providers Care Catering Sales Manager Name Role Phone Unavailable Primary Care Provider Unavailabl e Social History Tobacco Use Types Packs/Day Years Used Date Smoking Tobacco: Never Assessed Sex and Gender Information Value Date Recorded Sex Assigned at Not on file Legal Sex Male 1:35 PM EDT Gender Identity Not on file Sexual Orientation Not on file Plan of Treatment Health Maintenance Due Date Last Done Comments Colorectal Cancer Screening: Colonoscopy 1955 DTaP,Tdap,and Td Vaccines (1 - Tdap) 1973 Pneumococcal Vaccine: 50+ Ye ars (1 of 1 - PCV) 2004 Zoster Vaccines (1 of 2) 2004 Abdominal Aortic Aneurysm (A AA) Screen 10/18/2023 Cholesterol Screening (Lipid Panel) 10/18/2023 Falls Risk Assessment 10/18/2023 Hepatitis C Screening 10/18/2023 Social Influencers of Health Screening 10/18/2023 Depression Screening 03/27/2024 COVID-19 Vaccine (1 - 2024-2 6 season) 2024 Influenza Vaccine (#1) 2024 RSV Immunization Adult Patie nts (1 - [...]
== END 2025-03-25 08:20 ==
LOC: HO.RESP 08:19
PROVIDERS: Visit Provider Hospitalist
DX: R91.8 Other nonspecific abnormal finding of lung field (principal); C34.31 Malignant neoplasm of lower lobe, right bronchus or lung; Z90.2 Acquired absence of lung [part of]
CPT/HCPCS: 94060; 94640; 94727; 94729

== ENCOUNTER → 2025-03-25 08:54 | Outpatient (BNV) | payer OTHER, SELFPAY | PROVIDERS: Visit Provider Internal Medicine Pulmonary Disease | DX: R91.8 Other nonspecific abnormal finding of lung field (principal) | CPT/HCPCS: 94060; 94727; 94729 ==